=== PATIENT | female | born 1970 | race Caucasian/White ===

== ENCOUNTER 2019-02-21 13:25 | Inpatient (IN) ==
[2019-02-21] MEDS ORDERED: Ondansetron 4 MG/2 ML VIAL IVP ONE (14:12)
[2019-02-21] MEDS ORDERED: 0.9 % Sodium Chloride 1,000 ML IVC ONE ×2 (14:12→15:28)
[2019-02-21 14:46] LABS: Basophils % 0.2 %; Eosinophils % 0.1 %; Hematocrit 39.2 % (35.3-44.9); Hemoglobin 12.5 g/dL (11.5-15.4); Immature Granulocytes % 0.5 % (0-4); Lymphocytes # 1.4 K/mcL (0.6-4.6); Lymphocytes % 14.4 %; Mean Corpuscular HGB Conc 31.9 g/dL (31.6-35.5); Mean Corpuscular Hemoglobin 25.9 pg (28.0-33.3); Mean Corpuscular Volume 81.2 fL (83.0-100.0); Mean Platelet Volume 11.2 fL (9.4-12.4); Monocytes # 0.6 K/mcL (0.0-1.3); Monocytes % 6.4 %; Neutrophils # 7.4 K/mcL (1.6-8.9); Platelet Count 201 K/mcL (140-400); Red Blood Count 4.83 M/mcL (3.82-4.97); Segmented Neutrophils % 78.4 %; White Blood Count 9.4 K/mcL (4.3-11.1)
[2019-02-21 15:13] LABS: Bilirubin,Urine Negative (Negative); Blood,Urine Large (Negative); Clarity,Urine Turbid (Clear); Color,Urine Dark Yellow (Yellow); Glucose,Urine (UA) 250 mg/dL (Normal); Ketones,Urine 15 mg/dL (Negative); Leukocyte Esterase,Urine Large (Negative); Nitrite,Urine Negative (Negative); Protein,Urine 100 mg/dL (Neg-Trace); Specific Gravity,Urine 1.015 (1.010-1.025); Urobilinogen,Urine Normal (Normal)
[2019-02-21 15:15] LABS: Bacteria,Urine Many per hpf (None-Few); Hyaline Casts,Urine None Seen per lpf (None-Few); Squamous Epithelial Cell,Urine Many per lpf (None-Few); WBC,Urine TNTC per hpf (0-3)
[2019-02-21 15:26] LABS: Alanine Aminotransferase 13 Units/L (7-52); Albumin 3.1 g/dL (3.5-5.7); Albumin/Globulin Ratio 0.8 (1.1-2.2); Alkaline Phosphatase 88 Units/L (34-104); Aspartate Amino Transferase 12 Units/L (13-39); BUN/Creatinine Ratio 11 (6-26); Bilirubin,Total 0.5 mg/dL (0.3-1.0); Blood Urea Nitrogen 13 mg/dL (6-20); Calcium 8.8 mg/dL (8.6-10.3); Carbon Dioxide 25 mEq/L (23-29); Chloride 89 mEq/L (98-107); Globulin 3.9 g/dL (2.4-3.5); Glucose 363 mg/dL (70-105); Osmolality,Calculated 285 (280-300); Potassium 2.3 mEq/L (3.5-5.1); Sodium 130 mEq/L (136-145); Thyroid Stimulating Hormone 2.243 mcIU/mL (0.340-5.600); Troponin I < 0.03 ng/mL (< 0.04); eGFR For African Americans > 60 (> 60); eGFR For Non-African Americans 50 (> 60)
--- NOTE | 2019-02-21 15:32 | Emergency Department Note ---
Disposition Clinical Impression: Prolonged QT interval, Hypokalemia DKA (diabetic ketoacidoses) Qualifiers: Diabetes mellitus type: other specified (including AUDRA) Diabetes mellitus complication detail: without coma Qualified Code(s): E13.10 - Other specified diabetes mellitus with ketoacidosis without coma UTI (urinary tract infection) Qualifiers: Urinary tract infection type: acute cystitis Hematuria presence: with hematuria Qualified Code(s): N30.01 - Acute cystitis with hematuria Altered mental status Qualifiers: Altered mental status type: unspecified Qualified Code(s): R41.82 - Altered mental status, unspecified Disposition: Admitted As Inpatient Condition: Serious Time of Disposition: 15:35 General Adult HPI - General Chief complaint: ED Weakness Stated complaint: weakness Time Seen by Provider: 02/21/19 13:39 Source: patient Mode of arrival: ambulatory Limitations: no limitations Nursing Notes Reviewed: Yes Vital Signs Reviewed: Yes - History of Present Illness HPI Narrative: 48-year-old female presents emergency Department with concerns of weakness. Patient states symptoms have been worsening over the past few weeks. Patient states she has had difficulty tolerating by mouth intake over the past few days. She has been unable to tolerate her diabetic medications. She is unsure if she had a fever however she reports Reiger's at home. Patient denies recent trauma, chest pain, shortness of breath, hematochezia, melena. Patient states her sugar was 350 earlier today and has not taken it in over a week prior to that. Pain Scale: 7 - Related Data Home Medications Medication Instructions Recorded Confirmed Aspirin Enteric Coated [Aspirin EC] 325 mg PO DAILY 01/09/18 02/21/19 Cholecalciferol (Vitamin D3) 10,000 unit PO MOTH 01/09/18 02/21/19 [Vitamin D3] Glimepiride [Amaryl] 4 mg PO DAILY 01/09/18 02/21/19 LORazepam [Ativan] 1 mg PO QAM 01/09/18 02/21/19 LORazepam [Ativan] 2 mg PO HS 01/09/18 02/21/19 Metformin HCl 1,000 mg PO BID 01/09/18 02/21/19 Omeprazole [PriLOSEC] 20 mg PO DAILY 01/09/18 02/21/19 Pioglitazone HCl 30 mg PO DAILY 01/09/18 02/21/19 Potassium Chloride [Klor-Con 10] 10 meq PO DAILY 01/09/18 02/21/19 Simvastatin [Zocor] 40 mg PO HS 01/09/18 02/21/19 Topiramate [Topamax] 100 mg PO HS 01/09/18 02/21/19 Topiramate [Topamax] 200 mg PO QAM 01/09/18 02/21/19 ARIPiprazole [Abilify] 5 mg PO DAILY 02/21/19 02/21/19 FLUoxetine HCl [Fluoxetine HCl] 40 mg PO DAILY 02/21/19 02/21/19 Liraglutide [Victoza 3-Curtis] 1.8 mg SQ DAILY 02/21/19 02/21/19 Allergies Allergy/AdvReac Type Severity Reaction Status Date / Time divalproex sodium AdvReac Headache Verified 02/21/19 13:28 [From Depakote] glyburide [From Micronase] AdvReac Vomiting Verified 02/21/19 13:28 All systems ED: reviewed and negative except as stated. Review of Systems: As Per [facility] Past Medical History - Past Medical History Attestation: Yes The following information was validated with the patient. Source: patient Medical history: Reports: diabetes, GERD, hyperlipidemia, hypertension Surgical history: Reports: cholecystectomy Psychiatric history: Reports: bipolar - Social History Smoking Status: Former smoker Smokeless Tobacco Status: No Alcohol use: Reports: none Drug use: Reports: none Physical Exam General: Alert and in no acute distress. Patient is slow to respond to questions but answers them appropriately. Skin: Warm, dry, intact Head: Normocephalic and atraumatic Neck: Supple, trachea midline and no tenderness Cardiovascular: Tachycardia, no murmur, normal perfusion Respiratory: CTAB, no wheezing, cough, or respiratory distress Musculoskeletal: Normal strength, no tenderness, swelling or deformity GI: Soft, generalized tenderness to examination without evidence of rigidity, guarding, rebound. nondistended. Bowel sounds present Neuro: A&O to person, place, time and situation. No focal deficits noted on exam Psychiatric: cooperative and appropriate mood and affect. - General General appearance: alert, lethargic Course Vital Signs Temperature 97.3 F L 02/21/19 13:28 Pulse Rate 127 02/21/19 13:28 Respiratory Rate 15 02/21/19 13:28 Blood Pressure 109/78 02/21/19 13:28 O2 Sat by Pulse Oximetry 96 02/21/19 13:28 Temperature 100.4 F H 02/22/19 00:13 Pulse Rate 124 02/22/19 00:00 Respiratory Rate 17 02/22/19 00:00 Blood Pressure 127/63 02/22/19 00:00 O2 Sat by Pulse Oximetry 97 02/22/19 00:00 Oxygen Delivery Oxygen Delivery Room Air Medical Decision Making - MDM Narrative Medical decision making narrative: Patient is hypokalemic. She is also has DKA. Patient was given IV fluids and potassium replacement in the emergency department. She has not given insulin at this time secondary to her hypokalemia. She will be admitted to the hospitalist for further care and evaluation. She is started on antibiotics for urinary tract infection. - Medical Records Medical records reviewed: Yes I reviewed the patient's medical records. - Lab Data Lab results reviewed: Yes I reviewed the patient's lab results. Result diagrams: 02/21/19 18:49 02/21/19 18:49 Lab Results 02/21/19 02/21/19 02/21/19 Range/Units 13:35 14:20 14:20 WBC 9.4 (4.3-11.1) K/mcL RBC 4.83 (3.82-4.97) M/mcL Hgb 12.5 (11.5-15.4) g/dL Hct 39.2 (35.3-44.9) % MCV 81.2 L (83.0-100.0) fL MCH 25.9 L (28.0-33.3) pg MCHC 31.9 (31.6-35.5) g/dL RDW 18.0 H (11.5-14.5) % Plt Count 201 (140-400) K/mcL MPV 11.2 (9.4-12.4) fL Immature Gran % 0.5 (0-4) % Seg Neutrophils % 78.4 % Lymphocytes % 14.4 % Monocytes % 6.4 % Eosinophils % 0.1 % Basophils % 0.2 % Neutrophils # 7.4 (1.6-8.9) K/mcL Lymphocytes # 1.4 (0.6-4.6) K/mcL Monocytes # 0.6 (0.0-1.3) K/mcL Eosinophils # 0.0 (0.0-0.6) K/mcL Basophils # 0.0 (0.0-0.2) K/mcL Sodium 130 L (136-145) mEq/L Potassium 2.3 L* (3.5-5.1) mEq/L Chloride 89 L (98-107) mEq/L Carbon Dioxide 25 (23-29) mEq/L BUN 13 (6-20) mg/dL Creatinine 1.17 (0.60-1.20) mg/dL Est GFR ( Amer) > 60 (> 60) Est GFR (Non-Af Amer) 50 L (> 60) BUN/Creatinine Ratio 11 (6-26) Glucose 363 H (70-105) mg/dL POC Glucose 356 H (70-99) mg/dL Calculated Osmolality 285 (280-300) Lactic Acid (0.5-2.2) mmol/L Calcium 8.8 (8.6-10.3) mg/dL Total Bilirubin 0.5 (0.3-1.0) mg/dL AST 12 L (13-39) Units/L ALT 13 (7-52) Units/L Alkaline Phosphatase 88 (34-104) Units/L Troponin I < 0.03 (< 0.04) ng/mL Serum Total Protein 7.0 (6.4-8.9) g/dL Albumin 3.1 L (3.5-5.7) g/dL Globulin 3.9 H (2.4-3.5) g/dL Albumin/Globulin Ratio 0.8 L (1.1-2.2) TSH 2.243 (0.340-5.600) mcIU/mL Urine Color (Yellow) Urine Clarity (Clear) Urine pH (5.0-8.0) pH Units Ur Specific [place] (1.010-1.025) Urine Protein (Neg-Trace) mg/dL Urine Glucose (UA) (Normal) mg/dL Urine Ketones (Negative) mg/dL Urine Blood (Negative) Urine Nitrite (Negative) Urine Bilirubin (Negative) Urine Urobilinogen (Normal) mg/dL Ur Leukocyte Esterase (Negative) Urine Microscopic RBC (0-3) per hpf Urine Microscopic WBC (0-3) per hpf Ur Squamous Epith Cells (None-Few) per lpf Urine Bacteria (None-Few) per hpf Hyaline Casts (None-Few) per lpf Ur Culture Indicated? (NO) 02/21/19 02/21/19 Range/Units 14:43 15:01 WBC (4.3-11.1) K/mcL RBC (3.82-4.97) M/mcL Hgb (11.5-15.4) g/dL Hct (35.3-44.9) % MCV (83.0-100.0) fL MCH (28.0-33.3) pg MCHC (31.6-35.5) g/dL RDW (11.5-14.5) % Plt Count (140-400) K/mcL MPV (9.4-12.4) fL Immature Gran % (0-4) % Seg Neutrophils % % Lymphocytes % % Monocytes % % Eosinophils % % Basophils % % Neutrophils # (1.6-8.9) K/mcL Lymphocytes # (0.6-4.6) K/mcL Monocytes # (0.0-1.3) K/mcL Eosinophils # (0.0-0.6) K/mcL Basophils # (0.0-0.2) K/mcL Sodium (136-145) mEq/L Potassium (3.5-5.1) mEq/L Chloride (98-107) mEq/L Carbon Dioxide (23-29) mEq/L BUN (6-20) mg/dL Creatinine (0.60-1.20) mg/dL Est GFR ( Amer) (> 60) Est GFR (Non-Af Amer) (> 60) BUN/Creatinine Ratio (6-26) Glucose (70-105) mg/dL POC Glucose (70-99) mg/dL Calculated Osmolality (280-300) Lactic Acid 1.1 (0.5-2.2) mmol/L Calcium (8.6-10.3) mg/dL Total Bilirubin (0.3-1.0) mg/dL AST (13-39) Units/L ALT (7-52) Units/L Alkaline Phosphatase (34-104) Units/L Troponin I (< 0.04) ng/mL Serum Total Protein (6.4-8.9) g/dL Albumin (3.5-5.7) g/dL Globulin (2.4-3.5) g/dL Albumin/Globulin Ratio (1.1-2.2) TSH (0.340-5.600) mcIU/mL Urine Color Dark Yellow (Yellow) Urine Clarity Turbid A (Clear) Urine pH 6.0 (5.0-8.0) pH Units Ur Specific [place] 1.015 (1.010-1.025) Urine Protein 100 H (Neg-Trace) mg/dL Urine Glucose (UA) 250 H (Normal) mg/dL Urine Ketones 15 H (Negative) mg/dL Urine Blood Large H (Negative) Urine Nitrite Negative (Negative) Urine Bilirubin Negative (Negative) Urine Urobilinogen Normal (Normal) mg/dL Ur Leukocyte Esterase Large H (Negative) Urine Microscopic RBC Present (0-3) per hpf Urine Microscopic WBC TNTC H (0-3) per hpf Ur Squamous Epith Cells Many H (None-Few) per lpf Urine Bacteria Many H (None-Few) per hpf Hyaline Casts None Seen (None-Few) per lpf Ur Culture Indicated? YES A (NO) - Radiology Data Radiology results reviewed: Yes I reviewed the patient's radiology results. - EKG Data EKG #1 EKG attestation: Yes I reviewed and interpreted this EKG. EKG results narrative: Sinus tachycardia with a rate of 112 without evidence of STEMI or other dysrhythmia. QTC prolonged at 523, QRS of 95.
[2019-02-21] MEDS ORDERED: Magnesium Sulfate 1 GM in D5% in Water 100 ML IVPB ONE (15:35)
[2019-02-21] MEDS ORDERED: Calcium Gluconate 1gm/50mL 1 GM/50 ML BAG IVPB ONE ×2 (15:36→16:46)
[2019-02-21 15:40] LABS: RBC,Urine Present per hpf (0-3)
[2019-02-21] MEDS ORDERED: cefTRIAXone 1,000 MG in Water for inj. (sterile) 10 ML IVP ONE (16:02)
[2019-02-21] MEDS ORDERED: Potassium Chloride Elixir 20 MEQ/15 ML UDC PO ONE (16:15)
[2019-02-21 16:32] LABS: ABG Base Excess 1 mEq/L (-2 to 3); ABG HCO3 24 mEq/L (21-27); ABG Oxygen Saturation 98 % (95-98); ABG PCO2 32 mmHg (35-45); ABG PH 7.49 pH Units (7.32-7.45); ABG PO2 91 mmHg (85-104); ABG TCO2 25 mEq/L (20-26)
--- NOTE | 2019-02-21 17:11 | Internal Med History&Physical ---
<Graciela Roy E - Last Filed: 02/21/19 18:52> Date of Encounter: 02/21/19 Time of Encounter: 16:40 Internal Medicine - H&P: HPI Chief complaint: weakness, n/v Admitted From: Home Plans for Post Hospital Care: Home History of present illness: Ms. Blue is a 48 year old female with past medical history of diabetes type 2 non- insulin dependent, hyperlipidemia, anxiety, depression, mood disorder. Presented to the ER with weakness as worsened over the past few weeks. She states that she has not been able to keep food or water down for 2 weeks, and will stay down for a short period of time and then she will vomit without warning. She has not been able to take her diabetes medications for the past few days. She denies any fevers or chills but did state that she had shaking earlier today. She does state she has had diarrhea for the past few days. She also has burning and pain with urination for the last 2 weeks. states that she is much slower than her typical self, she is typically "right on it ". Her glucose this morning was 350. She denies any chest pain, shortness of br eath, abdominal pain. Vitals on admission 97.3 temperature, heart rate 108, respiratory rate 13, blood pressure 95/71, 97% on room air. Patient's labs on admission show white blood cell count of 9.4, hemoglobin 12.5, hematocrit 39.2, platelet count of 201, sodium 1:30 which is corrected at 134, potassium 2.3, chloride 89, creatinine 1.17, GFR 50, glucose of 363, AST of 12, albumin 3.1. Showing an anion gap of 16. ABG showed pH of 7.49, PCO2 of 32, PO2 of 91 HCO3 of 24 total CO2 of 25 O2 saturation of 98% on room air EKG shows sinus tach rate of 112 no signs of ischemia prolonged QTC at 523, QRS at 95. UA shows turbid yellow urine with a pH of 6.0, specific gravity 1.015, protein 100, glucose of 250, ketones of 15, large blood, large leukocyte esterase, microscopic red blood cells and white blood cells, bacteria Chest x-ray showed no acute cardiopulmonary disease CT head showed no acute intracranial abnormalities Family historymother diabetes and heart disease Social historydenies alcohol, previous smoker last smoking history one month ago, denies illicit drug use including marijuana Patient was treated in the ED with mag sulfate 2 g, 40 mg of oral potassium chloride, 1 L fluids, 1 g of ceftriaxone, 1 g of calcium gluconate Past Med Surg Social Fam HX - Past Medical History Medical history: diabetes, GERD, hyperlipidemia, hypertension Additional medical history: Anxiety, Bipolar Disorder, neuropathy-arms, renal lithiasis, fibrocystic breast disease. Depression, Obesity. Endometriosis. Seasonal Allergies Psychiatric history: bipolar - Past Surgical History Surgical History: cholecystectomy Additional surgical history: kidney stone,tubal ligation,hydrothermal ablasion - Social History Smoking Status: Former smoker Smokeless Tobacco Status: No Alcohol use: none Drug use: none Internal Medicine - H&P: Meds Aspirin Enteric Coated [Aspirin EC] 325 mg PO DAILY 01/09/18 [History] Cholecalciferol (Vitamin D3) [Vitamin D3] 10,000 unit PO MOTH 01/09/18 [History] Glimepiride [Amaryl] 4 mg PO DAILY 01/09/18 [History] LORazepam [Ativan] 1 mg PO QAM 01/09/18 [History] LORazepam [Ativan] 2 mg PO HS 01/09/18 [History] Metformin HCl 1,000 mg PO BID 01/09/18 [History] Omeprazole [PriLOSEC] 20 mg PO DAILY 01/09/18 [History] Pioglitazone HCl 30 mg PO DAILY 01/09/18 [History] Potassium Chloride [Klor-Con 10] 10 meq PO DAILY 01/09/18 [History] Simvastatin [Zocor] 40 mg PO HS 01/09/18 [History] Topiramate [Topamax] 100 mg PO HS 01/09/18 [History] Topiramate [Topamax] 200 mg PO QAM 01/09/18 [History] ARIPiprazole [Abilify] 5 mg PO DAILY 02/21/19 [History] FLUoxetine HCl [Fluoxetine HCl] 40 mg PO DAILY 02/21/19 [History] Liraglutide [Victoza 3-Curtis] 1.8 mg SQ DAILY 02/21/19 [History] Allergy/AdvReac Type Severity Reaction Status Date / Time divalproex sodium AdvReac Headache Verified 02/21/19 13:28 [From Depakote] glyburide [From Micronase] AdvReac Vomiting Verified 02/21/19 13:28 All Systems PM: A 10-system review of systems was performed and is negative for pertinent findings except as documented above in the HPI. - Constitutional Constitutional: fatigue, no chills, no fever(s) - EENT Eyes: no blurry vision Nose, mouth and throat: no sinus pain, no sinus pressure - Cardiovascular Cardiovascular ROS IM: no chest pain, no dyspnea, no edema, no palpitations - Respiratory Respiratory: no cough, no dyspnea, no excessive phlegm production - Gastrointestinal Gastrointestinal: diarrhea, nausea, vomiting, no abdominal pain, no consti pation, no hematemesis - Genitourinary Genitourinary: urinary frequency, urinary hesitancy, urinary urgency - Musculoskeletal Musculoskeletal ROS IM: no back pain, no muscle cramps - Integumentary Integumentary IM: no new lesions, no rash, no skin ulcer - Neurological Neurological ROS: confusion, weakness - Constitutional Vitals: Temp Pulse Resp BP Pulse Ox 97.3 F L 108 13 95/71 97 02/21/19 13:54 02/21/19 15:06 02/21/19 15:06 02/21/19 15:06 02/21/19 15:06 General appearance: Present: A&O X 2, no acute distress, answers questions appropriately (Although slowly) Exam: As above - Head Head exam: Present: atraumatic, normal inspection - Eye Eye exam: Present: PERRL, sclera anicteric - ENT ENT exam: Present: mucous membranes dry - Neck Neck exam general surgery: Present: supple, trachea midline. Absent: lymphadenopathy, tenderness - Respiratory Respiratory exam: Present: CTAB. Absent: rales, rhonchi, stridor, wheezes - Cardiovascular Cardiovascular exam: Present: RRR, tachycardia. Absent: diastolic murmur, systolic murmur - GI/Abdominal GI/Abdominal exam: Present: normal bowel sounds, soft. Absent: tenderness - Extremities Exam Extremities exam: Present: warm. Absent: calf tenderness, pedal edema - Neurological Exam Neurological exam: Present: altered (Slow to answer questions, after repeat able to answer), CN II-XII intact. Absent: facial droop - Skin Skin exam: Present: dry, intact, warm Internal Med - H&P Results - Labs CBC & Chem 7: 02/21/19 14:20 02/21/19 14:20 Labs: Short CBC 02/21/19 Range/Units 14:20 WBC 9.4 (4.3-11.1) K/mcL Hgb 12.5 (11.5-15.4) g/dL Hct 39.2 (35.3-44.9) % Plt Count 201 (140-400) K/mcL Neutrophils # 7.4 (1.6-8.9) K/mcL BMP 02/21/19 14:20 Sodium 130 L Potassium 2.3 L* Chloride 89 L Carbon Dioxide 25 BUN 13 Creatinine 1.17 Glucose 363 H Calcium 8.8 Cardiac Enzymes 02/21/19 Range/Units 14:20 Troponin I < 0.03 (< 0.04) ng/mL Liver Function 02/21/19 Range/Units 14:20 Total Bilirubin 0.5 (0.3-1.0) mg/dL AST 12 L (13-39) Units/L ALT 13 (7-52) Units/L Alkaline Phosphatase 88 (34-104) Units/L Albumin 3.1 L (3.5-5.7) g/dL Urine 02/21/19 Range/Units 14:43 Urine Color Dark Yellow (Yellow) Urine Clarity Turbid A (Clear) Urine pH 6.0 (5.0-8.0) pH Units Ur Specific [place] 1.015 (1.010-1.025) Urine Protein 100 H (Neg-Trace) mg/dL Urine Glucose (UA) 250 H (Normal) mg/dL - ABG Interpretation ABG results: 02/21/19 16:27 ABG pH 7.49 H ABG pCO2 32 L ABG pO2 91 ABG HCO3 24 ABG Total CO2 25 ABG O2 Saturation 98 ABG Base Excess 1 - Impressions ITS Impressions Chest X-Ray 02/21/19 14:12 IMPRESSION: No acute cardiopulmonary disease. D/ / 02/21/2019 15:40:50 Kris Padilla MD / [email or web address] Interpreting Provider: Kris Padilla MD Head CT 02/21/19 14:13 IMPRESSION: No acute intracranial abnormality. D/ / Kris Padilla MD / Kris Padilla MD Interpreting Provider: Kris Padilla MD - Assessment and Plan (1) Hypokalemia Current Visit: Yes Status: Acute Assessment and plan: Likely secondary to poor oral intake, diarrhea, vomiting Patient has received 40 mEq by mouth and is currently receiving 40 units IV We will continue to monitor potassium and replace as necessary EKG changes showing QTc prolongation of 523 and tachycardia We will recheck EKG (2) Sepsis Current Visit: Yes Status: Acute Assessment and plan: Patient meets sepsis criteria with tachycardia 108, blood pressure 95/71, possible source of infection UTI Patient received 2 L of fluid in the ED We will continue to treat UTI with IV antibiotics We will continue to monitor patient's vitals Qualifiers: Sepsis type: sepsis due to unspecified organism Sepsis acute organ dysfunction status: without acute organ dysfunction Qualified Code(s): A41.9 - Sepsis, unspecified organism (3) UTI (urinary tract infection) Current Visit: Yes Status: Acute Assessment and plan: Patient had turbid yellow urine with a pH of 6.0, specific gravity 1.015, protein 100, glucose of 250, ketones of 15, large blood, large leukocyte esterase, microscopic RBC and WBC, bacteria Patient does state that she has had pain with urination as well as burning with urination for the last 2+ weeks Patient has also been nauseous and has had vomiting for the last 2 weeks as well as diarrhea Urine culture was done in ED Patient was given 1 dose of Rocephin in the ED We will continue IV antibiotics at this time Qualifiers: Urinary tract infection type: acute cystitis Hematuria presence: with hematuria Qualified Code(s): N30.01 - Acute cystitis with hematuria (4) Prolonged QT interval Current Visit: Yes Status: Acute Assessment and plan: Patient's QTc noted to be 523 on EKG in the ED Likely secondary to hypokalemia Electrolytes are being replaced currently and we will repeat EKG Patient has received 2 g of mag sulfate Patient is also received 1 g of calcium gluconate for cardiac membrane protection (5) Altered mental status Current Visit: Yes Status: Acute Assessment and plan: Patient's states patient is very slow compared to normal Patient is able to answer questions appropriately but takes quite some time to answer This is likely secondary to patient's clinical status Treatment as per above Patient is a note 3 at this time Qualifiers: Altered mental status type: unspecified Qualified Code(s): R41.82 - Altered mental status, unspecified (6) Hyponatremia Current Visit: Yes Status: Acute Assessment and plan: Likely secondary to poor oral intake, vomiting, diarrhea Patient has received 40 mg orally of potassium chloride and is currently receiving 40 mg of potassium chloride IV We will continue to monitor and replace as necessary (7) Diabetes mellitus Current Visit: Yes Status: Acute Assessment and plan: Patient is a known history of diabetes type 2 on Victoza and metformin We will switch patient to sliding scale insulin once her potassium has reached above 3.5 Qualifiers: Diabetes mellitus type: type 2 Diabetes mellitus exterminator termite insulin use: with exterminator termite use Diabetes mellitus complication status: with hyperglycemia Qualified Code(s): E11.65 - Type 2 diabetes mellitus with hyperglycemia; Z79.4 - terminal press operator (current) use of insulin (8) Hyperlipidemia Current Visit: No Status: Chronic Assessment and plan: Continue patient's home statin Qualifiers: Hyperlipidemia type: unspecified Qualified Code(s): E78.5 - Hyperlipidemia, unspecified (9) Depression with anxiety Current Visit: No Status: Chronic Assessment and plan: Patient has a history of depression and anxiety as well as mood disorder We will continue home medications (10) Mood disorder Current Visit: No Status: Chronic Assessment and plan: Continue home medications (11) Colitis Current Visit: Yes Status: Suspected Assessment and plan: Patient states that she has had diarrhea which has been partially formed 1-2 bowel movements per day At this time we are concerned for colitis due to patient's hypokalemia as well as diarrhea, nausea, vomiting We will continue to monitor patient in his loose bowels continue we will consider stool culture and antibiotic coverage for this - Time Spent With Patient Total time spent is greater than 50% in coordination of care (as documented) at patient's floor/unit and/or counseling patient: <Danitza Nunes - Last Filed: 02/22/19 07:26> Date of Encounter: 02/22/19 Internal Medicine - H&P: HPI History of present illness: Ms. Blue is a 48 year old female All Systems PM: A 10-system review of systems was performed and is negative for pertinent findings except as documented above in the HPI. - Constitutional Vitals: Temp Pulse Resp BP Pulse Ox 99.0 F 87 16 83/55 95 02/22/19 04:10 02/22/19 06:00 02/22/19 06:00 02/22/19 06:00 02/22/19 06:00 Internal Med - H&P Results - Labs CBC & Chem 7: 02/22/19 03:36 02/22/19 05:34 Labs: Short CBC 02/21/19 02/21/19 02/22/19 Range/Units 14:20 18:49 03:36 WBC 9.4 7.2 11.5 H D (4.3-11.1) K/mcL Hgb 12.5 10.7 L D 9.9 L (11.5-15.4) g/dL Hct 39.2 33.4 L 31.6 L (35.3-44.9) % Plt Count 201 168 141 (140-400) K/mcL Neutrophils # 7.4 4.7 10.3 H (1.6-8.9) K/mcL BMP 02/21/19 02/21/19 02/22/19 14:20 18:49 00:03 Sodium 130 L 133 L 135 L Potassium 2.3 L* 2.3 L* 3.2 L D Chloride 89 L 99 103 Carbon Dioxide 25 24 17 L BUN 13 12 11 Creatinine 1.17 0.93 1.04 Glucose 363 H 262 H 223 H Calcium 8.8 7.9 L 7.7 L 02/22/19 02/22/19 02/22/19 00:41 03:36 05:34 Sodium 137 136 138 Potassium 3.6 2.4 L* D 2.5 L* Chloride 106 106 107 Carbon Dioxide 17 L 17 L 21 L BUN 11 11 11 Creatinine 1.43 H 0.97 1.01 Glucose 251 H 288 H 324 H Calcium 7.7 L 7.4 L 7.5 L Cardiac Enzymes 02/21/19 02/22/19 Range/Units 14:20 05:34 Troponin I < 0.03 < 0.03 (< 0.04) ng/mL Liver Function 02/21/19 02/22/19 02/22/19 Range/Units 14:20 03:36 05:34 Total Bilirubin 0.5 0.4 (0.3-1.0) mg/dL AST 12 L 12 L (13-39) Units/L ALT 13 8 (7-52) Units/L Alkaline Phosphatase 88 66 (34-104) Units/L Albumin 3.1 L 2.4 L 2.2 L (3.5-5.7) g/dL Urine 02/21/19 Range/Units 14:43 Urine Color Dark Yellow (Yellow) Urine Clarity Turbid A (Clear) Urine pH 6.0 (5.0-8.0) pH Units Ur Specific [place] 1.015 (1.010-1.025) Urine Protein 100 H (Neg-Trace) mg/dL Urine Glucose (UA) 250 H (Normal) mg/dL - ABG Interpretation ABG results: 02/21/19 16:27 ABG pH 7.49 H ABG pCO2 32 L ABG pO2 91 ABG HCO3 24 ABG Total CO2 25 ABG O2 Saturation 98 ABG Base Excess 1 - Impressions ITS Impressions Chest X-Ray 02/21/19 14:12 IMPRESSION: No acute cardiopulmonary disease. D/ / 02/21/2019 15:40:50 Kris aPdilla MD / [facility] Interpreting Provider: Kris aPdilla MD Head CT 02/21/19 14:13 IMPRESSION: No acute intracranial abnormality. D/ / Kris Padilla MD / Kris Padilla MD Interpreting Provider: Kris Padilla MD - Time Spent With Patient Total time spent is greater than 50% in coordination of care (as documented) at patient's floor/unit and/or counseling patient: - Attending Attestation I saw evaluated and examined this patient and reviewed objective data including labs and my medical decision-making was reviewed with the Resident Physician/Medical Student. I agree with the documented findings, disposition and treatment plan as described except to any changes set forth below. We independently had [id number] contact with the patient.
[2019-02-21] MEDS ORDERED: Naloxone 0.4 MG/ML INJ IVP PRN (17:19)
[2019-02-21] MEDS ORDERED: Calcium Gluconate 1gm/50mL 1 GM/50 ML BAG IVPB PRN (17:59)
[2019-02-21] MEDS ORDERED: 0.9 % Sodium Chloride 1,000 ML IVC SCH (18:15)
[2019-02-21] MEDS ORDERED: POTASSIUM CHLORIDE IVPB ONE (18:23)
[2019-02-21] MEDS ORDERED: LIDOCAINE 1% IVPB ONE (18:23)
[2019-02-21] MEDS ORDERED: SODIUM CHLORIDE 0.9% IVPB ONE (18:23)
[2019-02-21] MEDS: 0.9 % Sodium Chloride 1,000 ML IVC SCH ×3 (18:50→21:27)
[2019-02-21 19:07] LABS: Basophils % 0.1 %; Eosinophils % 0.3 %; Hematocrit 33.4 % (35.3-44.9); Immature Granulocytes % 0.6 % (0-4); Lymphocytes % 27.6 %; Mean Corpuscular Hemoglobin 26.7 pg (28.0-33.3); Mean Corpuscular Volume 83.3 fL (83.0-100.0); Mean Platelet Volume 10.8 fL (9.4-12.4); Monocytes # 0.5 K/mcL (0.0-1.3); Monocytes % 6.5 %; Neutrophils # 4.7 K/mcL (1.6-8.9); Platelet Count 168 K/mcL (140-400); Red Blood Count 4.01 M/mcL (3.82-4.97); Segmented Neutrophils % 64.9 %; White Blood Count 7.2 K/mcL (4.3-11.1)
[2019-02-21 19:08] LABS: Hemoglobin 10.7 g/dL (11.5-15.4)
[2019-02-21 19:26] LABS: VBG Ionized Calcium 1.07 mmol/L (1.15-1.35)
[2019-02-21] MEDS: MetroNIDAZOLE 500 MG/100 ML 500 MG/100 ML BAG IVPB SCH (19:29)
[2019-02-21 19:34] LABS: BUN/Creatinine Ratio 13 (6-26); Blood Urea Nitrogen 12 mg/dL (6-20); Calcium 7.9 mg/dL (8.6-10.3); Carbon Dioxide 24 mEq/L (23-29); Chloride 99 mEq/L (98-107); Glucose 262 mg/dL (70-105); Magnesium 2.1 mg/dL (1.6-2.6); Osmolality,Calculated 285 (280-300); Phosphorous 1.7 mg/dL (2.7-4.5); Potassium 2.3 mEq/L (3.5-5.1); Sodium 133 mEq/L (136-145); eGFR For African Americans > 60 (> 60); eGFR For Non-African Americans > 60 (> 60)
[2019-02-21] MEDS ORDERED: Ondansetron 4 MG/2 ML VIAL ONE (23:31)
[2019-02-22] MEDS: Ondansetron 4 MG/2 ML VIAL IVP PRN (00:05)
[2019-02-22] MEDS ORDERED: *HR* Promethazine 25 MG/ML VIAL IVP PRN (00:13)
[2019-02-22] MEDS ORDERED: 0.9 % Sodium Chloride 250 ML IVC ONE ×3 (00:39→06:22)
[2019-02-22 00:55] LABS: BUN/Creatinine Ratio 11 (6-26); Blood Urea Nitrogen 11 mg/dL (6-20); Calcium 7.7 mg/dL (8.6-10.3); Carbon Dioxide 17 mEq/L (23-29); Chloride 103 mEq/L (98-107); Glucose 223 mg/dL (70-105); Osmolality,Calculated 286 (280-300); Potassium 3.2 mEq/L (3.5-5.1); Sodium 135 mEq/L (136-145); eGFR For African Americans > 60 (> 60); eGFR For Non-African Americans 57 (> 60)
[2019-02-22] MEDS: MetroNIDAZOLE 500 MG/100 ML 500 MG/100 ML BAG IVPB SCH ×4 (00:56→23:38)
[2019-02-22 01:25] LABS: Calcium 7.7 mg/dL (8.6-10.3); Potassium 3.6 mEq/L (3.5-5.1)
[2019-02-22] MEDS: 0.9 % Sodium Chloride 1,000 ML IVC SCH (02:05)
[2019-02-22 03:53] LABS: Basophils % 0.1 %; Hematocrit 31.6 % (35.3-44.9); Hemoglobin 9.9 g/dL (11.5-15.4); Immature Granulocytes % 1.3 % (0-4); Lymphocytes # 0.6 K/mcL (0.6-4.6); Lymphocytes % 5.6 %; Mean Corpuscular HGB Conc 31.3 g/dL (31.6-35.5); Mean Corpuscular Hemoglobin 26.4 pg (28.0-33.3); Mean Corpuscular Volume 84.3 fL (83.0-100.0); Mean Platelet Volume 11.1 fL (9.4-12.4); Monocytes # 0.4 K/mcL (0.0-1.3); Monocytes % 3.7 %; Neutrophils # 10.3 K/mcL (1.6-8.9); Platelet Count 141 K/mcL (140-400); Red Blood Count 3.75 M/mcL (3.82-4.97); Segmented Neutrophils % 89.3 %; White Blood Count 11.5 K/mcL (4.3-11.1)
[2019-02-22 04:17] LABS: Alanine Aminotransferase 8 Units/L (7-52); Albumin 2.4 g/dL (3.5-5.7); Albumin/Globulin Ratio 0.9 (1.1-2.2); Alkaline Phosphatase 66 Units/L (34-104); Aspartate Amino Transferase 12 Units/L (13-39); BUN/Creatinine Ratio 11 (6-26); Bilirubin,Total 0.4 mg/dL (0.3-1.0); Blood Urea Nitrogen 11 mg/dL (6-20); Calcium 7.4 mg/dL (8.6-10.3); Carbon Dioxide 17 mEq/L (23-29); Chloride 106 mEq/L (98-107); Globulin 2.7 g/dL (2.4-3.5); Glucose 288 mg/dL (70-105); Osmolality,Calculated 292 (280-300); Potassium 2.4 mEq/L (3.5-5.1); Sodium 136 mEq/L (136-145); Total Protein 5.1 g/dL (6.4-8.9); eGFR For African Americans > 60 (> 60); eGFR For Non-African Americans > 60 (> 60)
[2019-02-22] MEDS ORDERED: 0.9 % Sodium Chloride 500 ML IVC ONE ×2 (05:18→06:51)
[2019-02-22 05:57] LABS: VBG Ionized Calcium 1.15 mmol/L (1.15-1.35)
[2019-02-22 06:14] LABS: BUN/Creatinine Ratio 11 (6-26); Blood Urea Nitrogen 11 mg/dL (6-20); Calcium 7.5 mg/dL (8.6-10.3); Carbon Dioxide 21 mEq/L (23-29); Chloride 107 mEq/L (98-107); Glucose 324 mg/dL (70-105); Osmolality,Calculated 298 (280-300); Potassium 2.5 mEq/L (3.5-5.1); Sodium 138 mEq/L (136-145); eGFR For African Americans > 60 (> 60); eGFR For Non-African Americans 59 (> 60)
[2019-02-22] MEDS ORDERED: 0.9 % Sodium Chloride 500 ML ONE (06:15)
[2019-02-22 06:23] LABS: Troponin I < 0.03 ng/mL (< 0.04)
[2019-02-22] MEDS: Albumin 25% 25gram/100mL 25 GM/100 ML IV.SOLN IVC SCH ×2 (06:26→06:35)
[2019-02-22 06:38] LABS: Magnesium 1.9 mg/dL (1.6-2.6); Phosphorous < 1.0 mg/dL (2.7-4.5)
[2019-02-22] MEDS ORDERED: Potassium Phosphate 44 MEQ in 0.9 % Sodium Chloride 250 ML IVPB ONE (06:39)
[2019-02-22 06:54] LABS: Albumin 2.2 g/dL (3.5-5.7)
[2019-02-22 07:23] LABS: Adenovirus Not Detected (Not Detect); Bordetella Pertussis Not Detected (Not Detect); Chlamydophila pneumoniae Not Detected (Not Detect); Coronavirus 229E Not Detected (Not Detect); Coronavirus HKU1 Not Detected (Not Detect); Coronavirus NL63 Not Detected (Not Detect); Coronavirus OC43 Not Detected (Not Detect); Human Metapneumovirus Not Detected (Not Detect); Human Rhinovirus/Enterovirus Not Detected (Not Detect); Influenza A Subtype 2009 H1 Not Detected (Not Detect); Influenza A Untypeable Not Detected (Not Detect); Influenza B Not Detected (Not Detect); Mycoplasma pneumoniae Not Detected (Not Detect); Parainfluenza Virus 1 Not Detected (Not Detect); Parainfluenza Virus 2 Not Detected (Not Detect); Parainfluenza Virus 3 Not Detected (Not Detect); Parainfluenza Virus 4 Not Detected (Not Detect); Respiratory Syncytial Virus Not Detected (Not Detect)
[2019-02-22 08:17] LABS: Estimated Average Glucose 226 mg/dl
[2019-02-22] MEDS ORDERED: Lidocaine -MPF 1% 5 ML AMPUL INFILT ONE (08:49)
[2019-02-22] MEDS: cefTRIAXone 2,000 MG in Water for inj. (sterile) 20 ML IVP SCH (08:59)
[2019-02-22] MEDS ORDERED: cefTRIAXone 1,000 MG in Water for inj. (sterile) 10 ML IVP SCH (09:00)
[2019-02-22 09:20] LABS: BUN/Creatinine Ratio 12 (6-26); Blood Urea Nitrogen 11 mg/dL (6-20); Carbon Dioxide 20 mEq/L (23-29); Chloride 109 mEq/L (98-107); Glucose 307 mg/dL (70-105); Osmolality,Calculated 295 (280-300); Potassium 2.6 mEq/L (3.5-5.1); Sodium 137 mEq/L (136-145); eGFR For African Americans > 60 (> 60); eGFR For Non-African Americans > 60 (> 60)
[2019-02-22] MEDS ORDERED: 0.9 % Sodium Chloride w KCl 40 MEQ/1,000 ML MLS IVC SCH (09:30)
[2019-02-22 09:47] LABS: C-Reactive Protein 72 mg/L (Less than 10)
[2019-02-22] MEDS ORDERED: Hydrocortisone Sodium Succ 100 MG/2 ML VIAL IVP SCH (10:13)
[2019-02-22] MEDS: Norepinephrine 4 MG in 0.9 % Sodium Chloride 250 ML IVC SCH (10:35)
[2019-02-22] MEDS: Hydrocortisone Sodium Succ 100 MG/2 ML VIAL IVP SCH ×3 (10:39→23:38)
[2019-02-22 11:52] LABS: BUN/Creatinine Ratio 12 (6-26); Blood Urea Nitrogen 11 mg/dL (6-20); Calcium 6.9 mg/dL (8.6-10.3); Carbon Dioxide 19 mEq/L (23-29); Chloride 108 mEq/L (98-107); Glucose 294 mg/dL (70-105); Magnesium 1.8 mg/dL (1.6-2.6); Osmolality,Calculated 292 (280-300); Phosphorous 2.5 mg/dL (2.7-4.5); Potassium 2.9 mEq/L (3.5-5.1); Sodium 136 mEq/L (136-145); eGFR For African Americans > 60 (> 60); eGFR For Non-African Americans > 60 (> 60)
--- NOTE | 2019-02-22 13:03 | Internal Med Progress Note ---
Hospitalist Progress Note - Encounter Date of Encounter: 02/22/19 Time of Encounter: 07:15 - Subjective Interval History: Patient admitted overnight for concerns of UTI, sepsis, electrolyte imbalance, and diabetes. She was fluid resuscitated and BP continues to drop off IVF boluses. I ordered PICC line and then pressor support. She is responding nicel y to Levophed. Given the GI complaints of 2 weeks and sepsis picture, I added hydrocortisone after her cortisol level was less than 20 on STAT labs this morning. We are also ordering stool for C. Diff, but clinically I am less suspicious. She is A&Ox3 but she appears to be slow to respond. I'm not sure if this is her baseline. We are awaiting family members to confirm. She denies any abdominal pain, flank pain, or suprapubic pain. - Exam Vitals: Temp Pulse Resp BP Pulse Ox 97.6 F 80 20 86/60 98 02/22/19 11:30 02/22/19 10:00 02/22/19 10:00 02/22/19 10:48 02/22/19 10:00 Exam: General: A&Ox3; slow to respond but appropriate HEENT: no icterus, EOMI, neck supply, dry mucosa CHEST: CTA B, no WRR, RRR, NO appreciable MTR. Abdomen: soft, NT, ND, No HSMG; + BS, no rebound, no guarding Ext: no calf pain, delayed cap refill of 4 seconds, pulses 1 + Neuro: no focal deficits, CN 2-12 intact Skin: warm and dry centrally; cool extremities; no appreciable rash Psych: flat affect; slow to respond (? baseline) - Assessment and Plan (1) Sepsis Current Visit: Yes Status: Acute Assessment and Plan: 1. Likely urine source. 2. Continue antibiotics. 3. Fluid resuscitation has been done; pressors started; hydrocortisone initiated. 4. Lactate trend has been normal. 5. Monitor hemodynamics and I/O. 6. Stool for C. Diff ordered. 7. Antibiotics include Vancomycin, Rocephin, and Flagyl -- de-escalate as clinical course and cultures dictate. (2) Hypokalemia Current Visit: Yes Status: Acute Assessment and Plan: 1. Monitor closely and correct, preferably by enteral route. Will correct with IV if unable to tolerate PO. (3) UTI (urinary tract infection) Current Visit: Yes Status: Acute Assessment and Plan: 1. Follow cultures and continue antibiotics. 2. Supportive measures as above. (4) DVT prophylaxis Current Visit: Yes Status: Acute Assessment and Plan: 1. Heparin SQ. (5) Hypophosphatemia Current Visit: Yes Status: Acute Assessment and Plan: 1. Replacing with potassium phosphate. 2. Monitor closely. (6) Diabetes mellitus Current Visit: Yes Status: Chronic Assessment and Plan: 1. Will use SSI and monitor glucose. If necessary, will add insulin drip. 2. Correct hypokalemia before giving insulin. 3. Patient does not have DKA. - Time Spent with Patient Total time spent is greater than 50% in coordination of care (as documented) at patient's floor/unit and/or counseling patient: Greater than 35 minutes Internal Medicine: Result - Labs CBC & Chem 7: 02/22/19 03:36 02/22/19 11:20 Labs: Short CBC 02/21/19 02/21/19 02/22/19 Range/Units 14:20 18:49 03:36 WBC 9.4 7.2 11.5 H D (4.3-11.1) K/mcL Hgb 12.5 10.7 L D 9.9 L (11.5-15.4) g/dL Hct 39.2 33.4 L 31.6 L (35.3-44.9) % Plt Count 201 168 141 (140-400) K/mcL Neutrophils # 7.4 4.7 10.3 H (1.6-8.9) K/mcL BMP 02/21/19 02/21/19 02/22/19 14:20 18:49 00:03 Sodium 130 L 133 L 135 L Potassium 2.3 L* 2.3 L* 3.2 L D Chloride 89 L 99 103 Carbon Dioxide 25 24 17 L BUN 13 12 11 Creatinine 1.17 0.93 1.04 Glucose 363 H 262 H 223 H Calcium 8.8 7.9 L 7.7 L 02/22/19 02/22/19 02/22/19 00:41 03:36 05:34 Sodium 137 136 138 Potassium 3.6 2.4 L* D 2.5 L* Chloride 106 106 107 Carbon Dioxide 17 L 17 L 21 L BUN 11 11 11 Creatinine 1.43 H 0.97 1.01 Glucose 251 H 288 H 324 H Calcium 7.7 L 7.4 L 7.5 L 02/22/19 02/22/19 08:07 11:20 Sodium 137 136 Potassium 2.6 L 2.9 L Chloride 109 H 108 H Carbon Dioxide 20 L 19 L BUN 11 11 Creatinine 0.89 0.89 Glucose 307 H 294 H Calcium 7.0 L 6.9 L Cardiac Enzymes 02/21/19 02/22/19 Range/Units 14:20 05:34 Troponin I < 0.03 < 0.03 (< 0.04) ng/mL Liver Function 02/21/19 02/22/19 02/22/19 Range/Units 14:20 03:36 05:34 Total Bilirubin 0.5 0.4 (0.3-1.0) mg/dL AST 12 L 12 L (13-39) Units/L ALT 13 8 (7-52) Units/L Alkaline Phosphatase 88 66 (34-104) Units/L Albumin 3.1 L 2.4 L 2.2 L (3.5-5.7) g/dL Urine 02/21/19 Range/Units 14:43 Urine Color Dark Yellow (Yellow) Urine Clarity Turbid A (Clear) Urine pH 6.0 (5.0-8.0) pH Units Ur Specific [place] 1.015 (1.010-1.025) Urine Protein 100 H (Neg-Trace) mg/dL Urine Glucose (UA) 250 H (Normal) mg/dL - ABG Interpretation ABG results: ABG ABG pH 7.49 pH Units (7.32-7.45) H 02/21/19 16:27 ABG pCO2 32 mmHg (35-45) L 02/21/19 16:27 ABG pO2 91 mmHg (85-104) 02/21/19 16:27 ABG O2 Saturation 98 % (95-98) 02/21/19 16:27 - Impressions Impressions Chest X-Ray 02/21/19 14:12 IMPRESSION: No acute cardiopulmonary disease. D/ / 02/21/2019 15:40:50 [facility] Interpreting Provider: Kris Padilla MD Head CT 02/21/19 14:13 IMPRESSION: No acute intracranial abnormality. D/ / Kris Padilla MD / Kris Padilla MD Interpreting Provider: Kris Padilla MD Consult Discharge Plan - Plan Referrals: Joseph Matthews MD [Primary Care Provider] - (1) Sepsis Qualifiers: Sepsis type: sepsis due to unspecified organism Sepsis acute organ dysfunction status: without acute organ dysfunction Qualified Code(s): A41.9 - Sepsis, unspecified organism (3) UTI (urinary tract infection) Qualifiers: Urinary tract infection type: acute cystitis Hematuria presence: with hematuria Qualified Code(s): N30.01 - Acute cystitis with hematuria (6) Diabetes mellitus Qualifiers: Diabetes mellitus type: type 2 Diabetes mellitus local intermodal truck driver insulin use: with local intermodal truck driver use Diabetes mellitus complication status: with hyperglycemia Qualified Code(s): E11.65 - Type 2 diabetes mellitus with hyperglycemia; Z79.4 - [facility] (current) use of insulin
[2019-02-22] MEDS: *HR* Heparin 5,000 UNIT/ML VIAL SQ SCH ×2 (13:43→21:27)
[2019-02-22] MEDS ORDERED: *HR* Dextrose 50 % in Water (Syg) 50 ML SYRINGE IVP PRN (15:36)
[2019-02-22] MEDS ORDERED: D5% in Water 1,000 ML IVC PRN (15:36)
[2019-02-22] MEDS ORDERED: Dextrose Gel 15 GM/37.5 ML TUBE PO PRN ×2 (15:36)
[2019-02-22 16:50] LABS: BUN/Creatinine Ratio 15 (6-26); Blood Urea Nitrogen 11 mg/dL (6-20); Carbon Dioxide 14 mEq/L (23-29); Chloride 116 mEq/L (98-107); Glucose 331 mg/dL (70-105); Osmolality,Calculated 316 (280-300); Sodium 147 mEq/L (136-145); eGFR For African Americans > 60 (> 60); eGFR For Non-African Americans > 60 (> 60)
[2019-02-22 17:53] LABS: BUN/Creatinine Ratio 13 (6-26); Blood Urea Nitrogen 12 mg/dL (6-20); Calcium 6.7 mg/dL (8.6-10.3); Carbon Dioxide 17 mEq/L (23-29); Chloride 112 mEq/L (98-107); Glucose 356 mg/dL (70-105); Osmolality,Calculated 304 (280-300); Potassium 3.5 mEq/L (3.5-5.1); Sodium 140 mEq/L (136-145); eGFR For African Americans > 60 (> 60); eGFR For Non-African Americans > 60 (> 60)
[2019-02-22] MEDS: Insulin LISPRO 300 UNITS/3 ML VIAL SQ SCH ×2 (18:04→21:36)
[2019-02-22] MEDS: Calcium Gluconate 1gm/50mL 1 GM/50 ML BAG IVPB SCH (18:09)
[2019-02-22 18:20] LABS: Estimated Average Glucose 226 mg/dl
[2019-02-22] MEDS: 0.9 % Sodium Chloride w KCl 20 MEQ/1,000 ML MLS IVC SCH (19:46)
[2019-02-22 22:17] LABS: VBG Ionized Calcium 1.15 mmol/L (1.15-1.35)
[2019-02-22 22:30] LABS: BUN/Creatinine Ratio 15 (6-26); Blood Urea Nitrogen 13 mg/dL (6-20); Carbon Dioxide 18 mEq/L (23-29); Chloride 113 mEq/L (98-107); Glucose 323 mg/dL (70-105); Magnesium 1.8 mg/dL (1.6-2.6); Osmolality,Calculated 301 (280-300); Potassium 3.1 mEq/L (3.5-5.1); Sodium 139 mEq/L (136-145); eGFR For African Americans > 60 (> 60); eGFR For Non-African Americans > 60 (> 60)
[2019-02-23 05:24] LABS: VBG Ionized Calcium 0.99 mmol/L (1.15-1.35)
[2019-02-23] MEDS: 0.9 % Sodium Chloride w KCl 20 MEQ/1,000 ML MLS IVC SCH ×3 (06:12→18:42)
[2019-02-23] MEDS: *HR* Heparin 5,000 UNIT/ML VIAL SQ SCH ×3 (06:12→20:40)
[2019-02-23 06:30] LABS: VBG Ionized Calcium 1.17 mmol/L (1.15-1.35)
[2019-02-23 06:32] LABS: Basophils % 0.1 %; Hematocrit 27.3 % (35.3-44.9); Immature Granulocytes % 0.6 % (0-4); Lymphocytes # 1.2 K/mcL (0.6-4.6); Lymphocytes % 16.6 %; Mean Corpuscular Hemoglobin 25.9 pg (28.0-33.3); Mean Corpuscular Volume 86.1 fL (83.0-100.0); Mean Platelet Volume 11.7 fL (9.4-12.4); Monocytes # 0.2 K/mcL (0.0-1.3); Monocytes % 3.2 %; Neutrophils # 5.5 K/mcL (1.6-8.9); Platelet Count 143 K/mcL (140-400); Red Blood Count 3.17 M/mcL (3.82-4.97); Segmented Neutrophils % 79.5 %
[2019-02-23 06:33] LABS: Hemoglobin 8.2 g/dL (11.5-15.4)
[2019-02-23 06:44] LABS: BUN/Creatinine Ratio 19 (6-26); Blood Urea Nitrogen 15 mg/dL (6-20); Calcium 7.3 mg/dL (8.6-10.3); Carbon Dioxide 18 mEq/L (23-29); Chloride 113 mEq/L (98-107); Glucose 284 mg/dL (70-105); Magnesium 2.3 mg/dL (1.6-2.6); Osmolality,Calculated 305 (280-300); Phosphorous 2.8 mg/dL (2.7-4.5); Potassium 3.8 mEq/L (3.5-5.1); Sodium 142 mEq/L (136-145); eGFR For African Americans > 60 (> 60); eGFR For Non-African Americans > 60 (> 60)
[2019-02-23] MEDS ORDERED: Aminoglycoside Consult 1 EACH MC ONE (07:58)
--- NOTE | 2019-02-23 08:41 | Internal Med Progress Note ---
Hospitalist Progress Note - Encounter Date of Encounter: 02/23/19 Time of Encounter: 07:20 - Subjective Interval History: Patient looks and feels much better; BP still a little soft but MAP remains consistently above 65. Stool negative for C. Diff. Patient denies any further nausea, vomiting, but liquid stool persists. Will advance diet and monitor symptoms. She has a non-gap acidosis which is likely due to GI losses. Will decrease stress dose steroids and monitor electrolytes. Will order GI panel given persistent diarrhea/loose stool. - Exam Vitals: Temp Pulse Resp BP Pulse Ox 97.4 F L 68 16 98/68 100 02/23/19 08:34 02/23/19 08:00 02/23/19 08:00 02/23/19 08:00 02/23/19 08:00 Exam: General: NAD; more alert, per yesterday back to baseline HEENT: neck supple, dry mucosa Chest: CTA B, NO WRRR, RRR, No MTR Abdomen: soft, NT ND, + BS, no HSMG; non-tender Ext: no CCE; no calf pain, full ROM Neuro: A&Ox3; no focal deficits Skin: warm and dry; cap refill ~ 3-4 seconds - Assessment and Plan (1) Sepsis Current Visit: Yes Status: Acute Assessment and Plan: 1. Off pressors since yesterday afternoon. 2. Wean stress dose steroids and IVF. 3. Monitor hemodynamics. 4. Follow cultures; urine likely source. 5. De-escalate antibiotics by tomorrow. (2) Hypokalemia Current Visit: Yes Status: Acute Assessment and Plan: 1. Correct as needed and monitor closely. 2. Improved. (3) UTI (urinary tract infection) Current Visit: Yes Status: Acute Assessment and Plan: 1. Continue Rocephin. 2. Follow cultures. (4) Hypophosphatemia Current Visit: Yes Status: Acute Assessment and Plan: 1. Corrected; monitor. (5) Diabetes mellitus Current Visit: Yes Status: Chronic Assessment and Plan: 1. Add Levemir and continue SSI. 2. No oral home diabetic meds while in hospital. (6) DVT prophylaxis Current Visit: Yes Status: Acute Assessment and Plan: 1. Heparin SQ. - Time Spent with Patient Total time spent is greater than 50% in coordination of care (as documented) at patient's floor/unit and/or counseling patient: Plan of Care Discussed with: other (MDR team) Internal Medicine: Result - Labs CBC & Chem 7: 02/23/19 06:05 02/23/19 06:05 Labs: Short CBC 02/23/19 Range/Units 06:05 WBC 7.0 (4.3-11.1) K/mcL Hgb 8.2 L D (11.5-15.4) g/dL Hct 27.3 L (35.3-44.9) % Plt Count 143 (140-400) K/mcL Neutrophils # 5.5 (1.6-8.9) K/mcL BMP 02/22/19 02/22/19 02/22/19 08:07 11:20 15:58 Sodium 137 136 147 H D Potassium 2.6 L 2.9 L 6.0 H D Chloride 109 H 108 H 116 H Carbon Dioxide 20 L 19 L 14 L BUN 11 11 11 Creatinine 0.89 0.89 0.73 Glucose 307 H 294 H 331 H Calcium 7.0 L 6.9 L 6.0 L* 02/22/19 02/22/19 02/23/19 17:16 21:55 06:05 Sodium 140 139 142 Potassium 3.5 D 3.1 L 3.8 Chloride 112 H 113 H 113 H Carbon Dioxide 17 L 18 L 18 L BUN 12 13 15 Creatinine 0.93 0.87 0.79 Glucose 356 H 323 H 284 H Calcium 6.7 L 7.0 L 7.3 L - ABG Interpretation ABG results: ABG ABG pH 7.49 pH Units (7.32-7.45) H 02/21/19 16:27 ABG pCO2 32 mmHg (35-45) L 02/21/19 16:27 ABG pO2 91 mmHg (85-104) 02/21/19 16:27 ABG O2 Saturation 98 % (95-98) 02/21/19 16:27 Consult Discharge Plan - Plan Referrals: Joseph Matthews MD [Primary Care Provider] - (1) Sepsis Qualifiers: Sepsis type: sepsis due to unspecified organism Sepsis acute organ dysfunction status: without acute organ dysfunction Qualified Code(s): A41.9 - Sepsis, unspecified organism (3) UTI (urinary tract infection) Qualifiers: Urinary tract infection type: acute cystitis Hematuria presence: with hematuria Qualified Code(s): N30.01 - Acute cystitis with hematuria (5) Diabetes mellitus Qualifiers: Diabetes mellitus type: type 2 Diabetes mellitus half-way insulin use: with emt intermediate use Diabetes mellitus complication status: with hyperglycemia Qualified Code(s): E11.65 - Type 2 diabetes mellitus with hyperglycemia; Z79.4 - continuous churn buttermaker (current) use of insulin
[2019-02-23] MEDS ORDERED: Water for inj. (sterile) 20 ML IV ONE (08:53)
[2019-02-23] MEDS: cefTRIAXone 2,000 MG in Water for inj. (sterile) 20 ML IVP SCH (09:32)
[2019-02-23] MEDS: MetroNIDAZOLE 500 MG/100 ML 500 MG/100 ML BAG IVPB SCH ×2 (09:33→16:39)
[2019-02-23] MEDS: Insulin LISPRO 300 UNITS/3 ML VIAL SQ SCH ×4 (09:34→20:40)
[2019-02-23] MEDS: Insulin DETEMIR 100 UNIT/ML X5UNITS SQ SCH ×2 (09:35→20:40)
[2019-02-23] MEDS: Norepinephrine 4 MG in 0.9 % Sodium Chloride 250 ML IVC SCH (10:32)
[2019-02-23 15:56] LABS: BUN/Creatinine Ratio 21 (6-26); Blood Urea Nitrogen 16 mg/dL (6-20); Calcium 6.9 mg/dL (8.6-10.3); Carbon Dioxide 17 mEq/L (23-29); Chloride 113 mEq/L (98-107); Glucose 289 mg/dL (70-105); Magnesium 2.2 mg/dL (1.6-2.6); Osmolality,Calculated 298 (280-300); Phosphorous 2.9 mg/dL (2.7-4.5); Sodium 138 mEq/L (136-145); eGFR For African Americans > 60 (> 60); eGFR For Non-African Americans > 60 (> 60)
[2019-02-23] MEDS: Hydrocortisone Sodium Succ 100 MG/2 ML VIAL IVP SCH (16:40)
[2019-02-23] MEDS: Ondansetron 4 MG/2 ML VIAL IVP PRN (16:57)
[2019-02-23] MEDS: Calcium Gluconate 1gm/50mL 1 GM/50 ML BAG IVPB SCH (17:19)
[2019-02-24] MEDS: MetroNIDAZOLE 500 MG/100 ML 500 MG/100 ML BAG IVPB SCH (00:08)
[2019-02-24] MEDS: Hydrocortisone Sodium Succ 100 MG/2 ML VIAL IVP SCH (00:09)
[2019-02-24 03:26] LABS: Basophils % 0.1 %; Hematocrit 29.7 % (35.3-44.9); Hemoglobin 9.2 g/dL (11.5-15.4); Immature Granulocytes % 0.3 % (0-4); Lymphocytes # 1.3 K/mcL (0.6-4.6); Lymphocytes % 19.4 %; Mean Corpuscular Hemoglobin 26.4 pg (28.0-33.3); Mean Corpuscular Volume 85.3 fL (83.0-100.0); Mean Platelet Volume 10.6 fL (9.4-12.4); Monocytes # 0.2 K/mcL (0.0-1.3); Monocytes % 3.4 %; Neutrophils # 5.2 K/mcL (1.6-8.9); Platelet Count 152 K/mcL (140-400); Red Blood Count 3.48 M/mcL (3.82-4.97); Red Cell Distribution Width 19.4 % (11.5-14.5); Segmented Neutrophils % 76.8 %; White Blood Count 6.8 K/mcL (4.3-11.1)
[2019-02-24 03:28] LABS: VBG Ionized Calcium 1.16 mmol/L (1.15-1.35)
[2019-02-24 04:04] LABS: BUN/Creatinine Ratio 20 (6-26); Blood Urea Nitrogen 14 mg/dL (6-20); Calcium 7.3 mg/dL (8.6-10.3); Carbon Dioxide 18 mEq/L (23-29); Chloride 117 mEq/L (98-107); Glucose 208 mg/dL (70-105); Magnesium 1.9 mg/dL (1.6-2.6); Osmolality,Calculated 299 (280-300); Phosphorous 2.5 mg/dL (2.7-4.5); Potassium 3.9 mEq/L (3.5-5.1); Sodium 141 mEq/L (136-145); eGFR For African Americans > 60 (> 60); eGFR For Non-African Americans > 60 (> 60)
[2019-02-24] MEDS: *HR* Heparin 5,000 UNIT/ML VIAL SQ SCH ×3 (06:11→21:13)
[2019-02-24] MEDS: Insulin LISPRO 300 UNITS/3 ML VIAL SQ SCH ×4 (07:33→21:11)
--- NOTE | 2019-02-24 08:24 | Internal Med Progress Note ---
Hospitalist Progress Note - Encounter Date of Encounter: 02/24/19 Time of Encounter: 07:15 - Subjective Interval History: Patient looks and feels much better. She denies CP, SOB, nausea, or vomiting. Diarrhea is much better and slowing down. Electrolytes are improved and stabilizing. Will transfer patient to step down unit and out of ICU today. She will need outpatient referral to endocrinology for suspected adrenal insufficiency. She will also need a long, slow taper from her hydrocortisone and likely maintenance hydrocortisone until she could establish with endocrinology. - Exam Vitals: Temp Pulse Resp BP Pulse Ox 97.5 F L 53 18 94/63 97 02/24/19 03:46 02/24/19 06:00 02/24/19 06:00 02/24/19 06:00 02/24/19 06:00 Exam: General: NAD; alert, pleasant, no complaints HEENT: no icterus, moist mucosa, neck supple Chest: CTA B, no WRR, RRR, bradycardia (HR 50's), no appreciable MTR Abdomen: soft, NT, ND, No HSMG, + BS, no rebound, no guarding Ext: trace edema; 2+ pulses; no calf pain, full ROM Neuro: A&Ox3; no focal deficits Skin: warm and dry, no rash Psych: pleasant and appropriate - Assessment and Plan (1) Sepsis Current Visit: Yes Status: Acute Assessment and Plan: 1. Much improved; secondary to UTI. 2. P-lock IVF today; patient maintaining hydration orally now. 3. Blood cultures negative. 4. Urine culture + for E. Coli; treated with Rocephin. 5. Lactates have all been normal. (2) Adrenal insufficiency Current Visit: Yes Status: Suspected Assessment and Plan: 1. GI symptoms and electrolytes did not start to improve until I added stress dose steroids. 2. Baseline AM cortisol was low in the setting of sepsis; as such, hydrocortisone was added to other supportive measures (IVF and pressors) at that time to maintain hemodynamic stability. She had significant improvement with steroids and GI symptoms improved drastically. Stool was negative for C. Diff. 3. Will need prolonged and slow taper from Hydrocortisone and likely maintenance dosing upon discharge until she can be referred and established with endocrinology and undergo formal ACTH stim test. (3) Hypokalemia Current Visit: Yes Status: Acute Assessment and Plan: 1. Corrected; monitor for now. 2. Suspect electrolyte imbalance from prolonged course of gastroenteritis (2 weeks) prior to admission +/- adrenal insufficiency. 3. Monitor chemistries; correct as necessary; slow taper from hydrocortisone. (4) UTI (urinary tract infection) Current Visit: Yes Status: Acute Assessment and Plan: 1. On Rocephin for UTI. 2. Convert to oral antibiotics prior to discharge. (5) Hypophosphatemia Current Visit: Yes Status: Acute Assessment and Plan: 1. As above; correct electrolytes as necessary. 2. Monitor daily. 3. Steadily improving. (6) Diabetes mellitus Current Visit: Yes Status: Chronic Assessment and Plan: 1. Off oral home meds while in hospital. 2. Increase Levemir (basal insulin) today and continue SSI. 3. Monitor and adjust SSI as necessary. (7) Prolonged Q-T interval on ECG Current Visit: Yes Status: Acute Assessment and Plan: 1. Will repeat EKG today. 2. Consult cardiology for guidance regarding Long QTc and resuming psychiatric medications as they can prolong QTc. 3. ECHO ordered. 4. Monitor and correct electrolytes as above. (8) DVT prophylaxis Current Visit: Yes Status: Acute Assessment and Plan: 1. Heparin SQ. - Time Spent with Patient Total time spent is greater than 50% in coordination of care (as documented) at patient's floor/unit and/or counseling patient: Greater than 35 minutes Plan of Care Discussed with: other (PIERCE dumont) Internal Medicine: Result - Labs CBC & Chem 7: 02/24/19 03:13 02/24/19 03:13 Labs: Short CBC 02/24/19 Range/Units 03:13 WBC 6.8 (4.3-11.1) K/mcL Hgb 9.2 L (11.5-15.4) g/dL Hct 29.7 L (35.3-44.9) % Plt Count 152 (140-400) K/mcL Neutrophils # 5.2 (1.6-8.9) K/mcL BMP 02/23/19 02/24/19 15:15 03:13 Sodium 138 141 Potassium 3.0 L 3.9 D Chloride 113 H 117 H Carbon Dioxide 17 L 18 L BUN 16 14 Creatinine 0.76 0.71 Glucose 289 H 208 H Calcium 6.9 L 7.3 L - ABG Interpretation ABG results: ABG ABG pH 7.49 pH Units (7.32-7.45) H 02/21/19 16:27 ABG pCO2 32 mmHg (35-45) L 02/21/19 16:27 ABG pO2 91 mmHg (85-104) 02/21/19 16:27 ABG O2 Saturation 98 % (95-98) 02/21/19 16:27 Consult Discharge Plan - Plan Referrals: Joseph Matthews MD [Primary Care Provider] - (1) Sepsis Qualifiers: Sepsis type: sepsis due to unspecified organism Sepsis acute organ dysfunction status: without acute organ dysfunction Qualified Code(s): A41.9 - Sepsis, unspecified organism (4) UTI (urinary tract infection) Qualifiers: Urinary tract infection type: acute cystitis Hematuria presence: with hematuria Qualified Code(s): N30.01 - Acute cystitis with hematuria (6) Diabetes mellitus Qualifiers: Diabetes mellitus type: type 2 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
[2019-02-24] MEDS: cefTRIAXone 2,000 MG in Water for inj. (sterile) 20 ML IVP SCH (08:43)
[2019-02-24] MEDS ORDERED: Insulin DETEMIR 100 UNIT/ML X5UNITS SQ SCH (09:00)
[2019-02-24] MEDS ORDERED: Hydrocortisone 10 MG TABLET PO SCH (09:00)
[2019-02-24] MEDS: Norepinephrine 4 MG in 0.9 % Sodium Chloride 250 ML IVC SCH (11:13)
--- NOTE | 2019-02-24 11:53 | Cardiology Consult Note ---
<Sunil Soni R - Last Filed: 02/24/19 12:32> Date of Encounter: 02/24/19 Time of Encounter: 11:52 Assessment and Plan (1) Prolonged QT interval Current Visit: Yes Status: Acute Prolonged QTc on admisson, 523ms in setting of tachycardia and hypokalemia--K 2.3, now corrected. ECG obtained this AM QTc improved to 418ms. On Prozac, Abilify, Topamax, Ativan. Cardiology consulted to determine if safe to resume. I reviewed ECG from 12/2017 and QTc at that time was 423ms. Reviewed [facility] records and at that time she was on Prozac, Topamax and Ativan. Given past QTc was not prolonged on these meds, it seems reasonable to resume her home psychiatric meds and monitor ECG/QTc at regular intervals. Recommend repeat ECG 48 hours after meds are resumed. TTE pending. Anticipate sign off once seen and evaluated by Dr. Kearns. Discussion w patient/family: The assessment and plan as outlined above was discussed with the patient and/or family members who expressed understanding and agreement. All questions were answered. Thank you for involving us in the care of your patient. Please call with any questions. I will discuss all the above with Dr. Kearns and make changes as necessary. History of Present Illness Consult date: 02/24/19 Requesting physician: Freddy Luna Consult reason: QTc prolonged Chief complaint: weakness History of present illness: Ms. Blue is a 48 year old female with PMH of diabetes type 2 non- insulin dependent, hyperlipidemia, anxiety, depression, mood disorder. Presented to the ER with weakness as worsened over the past few weeks. She stat es that she has not been able to keep food or water down for 2 weeks. Reports vomiting. She was found to have UTI and sepsis, hypokalemia K 2.3 and noted to have a prolonged QTc on admisson, 523ms. ECG obtained this AM QTc improved to 418ms. Given she is on multiple psychiatric meds and concern for prolonged QTc, cardiology consulted for further recs. She denies chest pain, dyspnea or syncope. TTE pending. Past Med Surg Social Fam HX - Past Medical History Medical history: diabetes, GERD, hyperlipidemia, hypertension Additional medical history: Anxiety, Bipolar Disorder, neuropathy-arms, renal lithiasis, fibrocystic breast disease. Depression, Obesity. Endometriosis. Seasonal Allergies Psychiatric history: bipolar - Past Surgical History Surgical History: cholecystectomy Additional surgical history: kidney stone,tubal ligation,hydrothermal ablasion - Social History Smoking Status: Former smoker Smokeless Tobacco Status: No Alcohol use: none Drug use: none Medications and Allergies Aspirin Enteric Coated [Aspirin EC] 325 mg PO DAILY 01/09/18 [History] Cholecalciferol (Vitamin D3) [Vitamin D3] 10,000 unit PO MOTH 01/09/18 [History] Glimepiride [Amaryl] 4 mg PO DAILY 01/09/18 [History] LORazepam [Ativan] 1 mg PO QAM 01/09/18 [History] LORazepam [Ativan] 2 mg PO HS 01/09/18 [History] Metformin HCl 1,000 mg PO BID 01/09/18 [History] Omeprazole [PriLOSEC] 20 mg PO DAILY 01/09/18 [History] Pioglitazone HCl 30 mg PO DAILY 01/09/18 [History] Potassium Chloride [Klor-Con 10] 10 meq PO DAILY 01/09/18 [History] Simvastatin [Zocor] 40 mg PO HS 01/09/18 [History] Topiramate [Topamax] 100 mg PO HS 01/09/18 [History] Topiramate [Topamax] 200 mg PO QAM 01/09/18 [History] ARIPiprazole [Abilify] 5 mg PO DAILY 02/21/19 [History] FLUoxetine HCl [Fluoxetine HCl] 40 mg PO DAILY 02/21/19 [History] Liraglutide [Victoza 3-Curtis] 1.8 mg SQ DAILY 02/21/19 [History] Allergy/AdvReac Type Severity Reaction Status Date / Time divalproex sodium AdvReac Headache Verified 02/21/19 13:28 [From Depakote] glyburide [From Micronase] AdvReac Vomiting Verified 02/21/19 13:28 All Systems Review: The remainder of the systems were reviewed and are negative Physical Examination Vital Signs, Last 4 Hours Temp Pulse Resp BP Pulse Ox 02/24/19 11:45 98.6 F 02/24/19 11:00 62 15 98/65 98 02/24/19 10:00 55 13 95/76 98 02/24/19 09:00 78 16 115/76 99 09/15/19 08:52 98.4 F 02/24/19 08:01 58 15 111/69 98 02/24/19 08:00 67 Vital Signs Temp Pulse Resp BP Pulse Ox 02/24/19 11:45 98.6 F 02/24/19 11:00 62 15 98/65 98 02/24/19 10:00 55 13 95/76 98 02/24/19 09:00 78 16 115/76 99 02/24/19 08:52 98.4 F 02/24/19 08:01 58 15 111/69 98 02/24/19 08:00 67 02/24/19 07:00 60 15 100/66 98 02/24/19 06:00 53 18 94/63 97 02/24/19 05:00 55 13 90/57 97 02/24/19 04:00 58 15 99/63 98 02/24/19 03:46 97.5 F L 02/24/19 03:00 58 15 94/62 97 02/24/19 02:00 64 14 101/66 98 02/24/19 01:00 54 14 91/60 96 02/24/19 00:03 97.5 F L 02/24/19 00:00 55 16 81/54 95 02/23/19 23:00 58 16 76/55 97 02/23/19 22:00 67 16 87/65 99 02/23/19 21:00 69 16 152/114 99 02/23/19 20:00 69 16 134/75 99 02/23/19 19:00 97.3 F L 75 20 129/107 100 02/23/19 18:00 71 15 143/88 02/23/19 17:00 67 14 131/84 100 02/23/19 16:16 97.9 F 02/23/19 16:00 72 02/23/19 15:00 66 20 124/80 100 02/23/19 14:00 73 15 79/57 99 02/23/19 13:00 82 16 93/63 99 Intake and Output 02/23/19 02/24/19 02/24/19 23:59 07:59 15:59 Intake Total 1360 / 2970 100 / 1270 1170 / 1270 Output Total 200 / 1025 100 / 400 300 / 400 Balance 1160 / 1945 0 / 870 870 / 870 Intake: IV Fluids 1360 / 2730 100 / 1120 1020 / 1120 KCl 20 mEq in 0.9% Sodium 1000 / 2000 1000 / 1000 Chloride 20 meq In 1,000 ml @ 125 mls/hr IVC .Q8H [facility] Rx#: [id number] Rocephin 2,000 MG In Water for 20 / 20 inj. (sterile) 20 ML @ 1200 mls /hr IVP DAILY [facility] Rx#: [id number] Flagyl Premix 500 MG/100 ML 500 100 / 300 100 / 100 mg In 100 ml @ 100 mls/hr IVPB Q8HR [facility] Rx#:[id number] Sodium Phosphate 30 MMOL In 0.9 260 / 260 % Sodium Chloride 250 ML @ 42 mls/hr IVPB Q12H PRN Rx#: [id number] Oral 150 / 150 Output: Urine 200 / 400 100 / 200 100 / 200 Catheter 200 / 200 Other: Meal Breakfast Percent of Meal Consumed 15% Stool Size Large Small Small Stool Consistency liquid liquid liquid Stool Color Brown Brown Yellow # Voids 1 # Bowel Movements 1 1 Weight 96.3 kg 96.3 kg Blood Glucose* 209 181 Patient Weight 02/24/19 23:59 Weight 96.3 kg General: Conversant, No Apparent Distress HEENT: Atraumatic, Normocephaly, Mucus Membranes Moist Neck: No JVD, Normal carotid pulses Cardiac: Reg Rate and Rhythm, Normal S1 and S2, No Murmur Lungs: Normal Breath Sounds, No Wheeze, Rales, Rhonchi Neuro: Alert and responsive, No focal deficits noted Abdomen: Soft, Non-Tender Skin: No rashes noted on visualized skin Musculoskeletal: No Chest Wall Tenderness Extremities: No Clubbing, No Cyanosis, No Edema, Normal Pulses Results 02/24/19 03:13 02/24/19 03:13 Lab Results 02/23/19 02/24/19 02/24/19 15:15 03:13 03:13 WBC 6.8 Hgb 9.2 L Hct 29.7 L Plt Count 152 Sodium 138 141 Potassium 3.0 L 3.9 D Chloride 113 H 117 H Carbon Dioxide 17 L 18 L BUN 16 14 Creatinine 0.76 0.71 Glucose 289 H 208 H Calcium 6.9 L 7.3 L Magnesium 2.2 1.9 Short CBC 02/24/19 Range/Units 03:13 WBC 6.8 (4.3-11.1) K/mcL Hgb 9.2 L (11.5-15.4) g/dL Hct 29.7 L (35.3-44.9) % Plt Count 152 (140-400) K/mcL Neutrophils # 5.2 (1.6-8.9) K/mcL BMP 02/24/19 02/23/19 Range/Units 03:13 15:15 Sodium 141 138 (136-145) mEq/L Potassium 3.9 D 3.0 L (3.5-5.1) mEq/L Chloride 117 H 113 H (98-107) mEq/L Carbon Dioxide 18 L 17 L (23-29) mEq/L BUN 14 16 (6-20) mg/dL Creatinine 0.71 0.76 (0.60-1.20) mg/dL Glucose 208 H 289 H (70-105) mg/dL Calcium 7.3 L 6.9 L (8.6-10.3) mg/dL Active Medications Dextrose/Water (Dextrose 50% (Syg)) 25 ml IVP AD PRN PRN Reason: Hypoglycemia Stop: 08/24/19 15:37 Glucagon (Glucagen) 1 mg IM ONCE PRN PRN Reason: Hypoglycemia Stop: 08/24/19 15:37 Glucose (Gluctose) 15 gm PO ONCE PRN PRN Reason: Hypoglycemia Stop: 08/24/19 15:37 Glucose (Gluctose) 30 gm PO ONCE PRN PRN Reason: Hypoglycemia Stop: 08/24/19 15:37 Heparin Sodium (Porcine) (Heparin) 5,000 unit SQ Q8HCO [facility]; Protocol Stop: 08/24/19 14:01 Hydrocortisone (Cortef) 20 mg PO TID [facility] Stop: 08/26/19 09:01 Ceftriaxone Sodium 2,000 mg/ (Sterile Water) 20 mls @ 1,200 mls/hr IVP DAILY S Stop: 08/24/19 09:01 Dextrose (Dextrose 5%) 1,000 mls @ 100 mls/hr IVC .Q10H PRN PRN Reason: HYPOGLYCEMIA Stop: 08/24/19 15:37 Insulin Detemir (Levemir) 10 unit SQ BID [facility] Stop: 08/26/19 09:01 Insulin Human Lispro (Humalog) 0 units SQ TIDAC JESSICA; Protocol Stop: 08/24/19 16:31 Insulin Human Lispro (Humalog) 0 units SQ HS JESSICA; Protocol Stop: 08/24/19 21:01 Naloxone HCl (Narcan) 0.4 mg IVP Q2MPRN PRN PRN Reason: SEE COMMENTS Stop: 08/23/19 17:20 Ondansetron HCl (Zofran) 4 mg IVP Q6H PRN; Protocol PRN Reason: Nausea Stop: 08/23/19 23:49 - Imaging and Cardiology Echo: pending - EKG Interpretation EKG results cardiology: personally reviewed Consult Discharge Plan - Plan Referrals: Joseph Matthews MD [Primary Care Provider] - <UrmilaCarine - Last Filed: 02/24/19 15:29> Date of Encounter: 02/24/19 - Attending Attestation I examined this patient and my medical decision-making was reviewed with the OUTER DIAMETER TECHNICIAN. I agree with the documented findings, disposition and treatment plan as described. Ms. Blue presented with prolonged QTc interval in setting of hypokalemia while on psychopharmacotherapy. ECG now normal after potassium was corrected. Incidentally, her medications were also stopped. Looking back, QTc on ECG was normal while on topamax, ativan and prozac in December 2017. If these medications are necessary, recommend cautious reintroduction with regular ECG and electrolyte monitoring. No further recommendations. Will sign off. Please call with questions. Assessment and Plan Discussion w patient/family: The assessment and plan as outlined above was discussed with the patient and/or family members who expressed understanding and agreement. All questions were answered. Thank you for involving us in the care of your patient. Please call with any questions. History of Present Illness History of present illness: Ms. Blue is a 48 year old female All Systems Review: The remainder of the systems were reviewed and are negative Physical Examination Vital Signs, Last 4 Hours Temp Pulse Resp BP Pulse Ox 02/24/19 13:00 80 02/24/19 12:49 98.7 F 64 16 127/75 98 02/24/19 11:45 98.6 F Results 02/24/19 03:13 02/24/19 03:13 Lab Results 02/23/19 02/24/19 02/24/19 15:15 03:13 03:13 WBC 6.8 Hgb 9.2 L Hct 29.7 L Plt Count 152 Sodium 138 141 Potassium 3.0 L 3.9 D Chloride 113 H 117 H Carbon Dioxide 17 L 18 L BUN 16 14 Creatinine 0.76 0.71 Glucose 289 H 208 H Calcium 6.9 L 7.3 L Magnesium 2.2 1.9
[2019-02-24] MEDS ORDERED: D5% in Water 1,000 ML IVC PRN (12:32)
[2019-02-24] MEDS ORDERED: Ondansetron 4 MG/2 ML VIAL IVP PRN (12:32)
[2019-02-24] MEDS ORDERED: Naloxone 0.4 MG/ML INJ IVP PRN (12:32)
[2019-02-24] MEDS ORDERED: Dextrose Gel 15 GM/37.5 ML TUBE PO PRN ×2 (12:32)
[2019-02-24] MEDS ORDERED: *HR* Dextrose 50 % in Water (Syg) 50 ML SYRINGE IVP PRN (12:32)
[2019-02-24] MEDS: Hydrocortisone 10 MG TABLET PO SCH ×2 (16:15→21:08)
[2019-02-24 18:31] LABS: BUN/Creatinine Ratio 19 (6-26); Blood Urea Nitrogen 13 mg/dL (6-20); Calcium 7.5 mg/dL (8.6-10.3); Carbon Dioxide 18 mEq/L (23-29); Chloride 113 mEq/L (98-107); Glucose 258 mg/dL (70-105); Magnesium 1.7 mg/dL (1.6-2.6); Osmolality,Calculated 297 (280-300); Phosphorous 1.8 mg/dL (2.7-4.5); Potassium 3.4 mEq/L (3.5-5.1); Sodium 139 mEq/L (136-145); eGFR For African Americans > 60 (> 60); eGFR For Non-African Americans > 60 (> 60)
[2019-02-24] MEDS: Insulin DETEMIR 100 UNIT/ML X5UNITS SQ SCH (21:10)
[2019-02-24] MEDS: Potassium Chloride Elixir 20 MEQ/15 ML UDC PO SCH (21:10)
[2019-02-25 04:20] LABS: BUN/Creatinine Ratio 17 (6-26); Blood Urea Nitrogen 11 mg/dL (6-20); Calcium 7.2 mg/dL (8.6-10.3); Carbon Dioxide 18 mEq/L (23-29); Chloride 115 mEq/L (98-107); Glucose 196 mg/dL (70-105); Magnesium 1.8 mg/dL (1.6-2.6); Osmolality,Calculated 291 (280-300); Potassium 3.6 mEq/L (3.5-5.1); Sodium 138 mEq/L (136-145); eGFR For African Americans > 60 (> 60); eGFR For Non-African Americans > 60 (> 60)
[2019-02-25] MEDS: *HR* Heparin 5,000 UNIT/ML VIAL SQ SCH ×3 (05:27→20:57)
[2019-02-25] MEDS: Insulin LISPRO 300 UNITS/3 ML VIAL SQ SCH ×4 (07:41→20:57)
[2019-02-25] MEDS: Potassium Chloride Elixir 20 MEQ/15 ML UDC PO SCH (07:48)
[2019-02-25] MEDS: Insulin DETEMIR 100 UNIT/ML X5UNITS SQ SCH ×2 (07:49→20:57)
[2019-02-25] MEDS: Hydrocortisone 10 MG TABLET PO SCH ×3 (07:50→20:57)
--- NOTE | 2019-02-25 08:16 | Internal Med Progress Note ---
<Danitza Nunes - Last Filed: 02/25/19 14:12> Hospitalist Progress Note - Encounter Date of Encounter: 02/25/19 - Exam Vitals: Temp Pulse Resp BP Pulse Ox 97.7 F 63 16 120/90 97 02/25/19 11:12 02/25/19 11:12 02/25/19 11:12 02/25/19 11:12 02/25/19 11:12 - Time Spent with Patient Total time spent is greater than 50% in coordination of care (as documented) at patient's floor/unit and/or counseling patient: Internal Medicine: Result - Labs CBC & Chem 7: 02/24/19 03:13 02/25/19 03:45 Labs: BMP 02/24/19 02/25/19 17:50 03:45 Sodium 139 138 Potassium 3.4 L 3.6 Chloride 113 H 115 H Carbon Dioxide 18 L 18 L BUN 13 11 Creatinine 0.67 0.65 Glucose 258 H 196 H Calcium 7.5 L 7.2 L - ABG Interpretation ABG results: ABG ABG pH 7.49 pH Units (7.32-7.45) H 02/21/19 16:27 ABG pCO2 32 mmHg (35-45) L 02/21/19 16:27 ABG pO2 91 mmHg (85-104) 02/21/19 16:27 ABG O2 Saturation 98 % (95-98) 02/21/19 16:27 Consult Discharge Plan - Plan Referrals: Joseph Matthews MD [Primary Care Provider] - 03/06/19 1:15 pm - Attending Attestation I saw evaluated and examined this patient and reviewed objective data including labs and my medical decision-making was reviewed with the Resident Ph ysician/Medical Student. I agree with the documented findings, disposition and treatment plan as described except to any changes set forth below. We independently had [id number] contact with the patient. No acute events. Patient has delayed speech but answers questions a ppropriately. Denies fevers/chills, chest pain, SOB, palpitations, n/v. VS: reviewed. Gen: NAD, AAO x3, aware of situation but is slow speech. Neuro: no focal deficits, normal strength. Labs: reviewed, phos low. A/P: 1. Sepsis 2. Adrenal insufficiency 3. Hypokalemia 4. UTI 5. Hypophosphatemia 6. DM 7: QT prolongation - Continue antibiotics, de escalate to PO - Hydrocortisone taper - Replacement of electrolytes as needed - ISS, sliding scale. - Psychiatric medications will be added back cautiously to avoid QT prolongation. Recheck EKG in 1-2 days. <Gary Peng I - Last Filed: 02/25/19 18:22> Hospitalist Progress Note - Encounter Date of Encounter: 02/25/19 Time of Encounter: 09:10 - Subjective Interval History: Patient is seen and examined today . she feels much better. She denies CP, SOB, nausea, or vomiting. Diarrhea is much better and slowing down, no fever or chills , patient is stable , he transferred to - Exam Vitals: Temp Pulse Resp BP Pulse Ox 98.0 F 61 16 110/73 97 02/25/19 07:35 02/25/19 07:35 02/25/19 07:35 02/25/19 07:35 02/25/19 07:35 Exam: General: no acute distress , A&AX3 HEENT: Atraumatic, Normocephaly, sclera unicteric Neck: supple , Full ROM , trachea midline Cardiac: RRR , S1+. S2+ Lungs: Normal Breath Sounds Bilaterally, No Wheeze, Rales, Rhonchi Abdomen: Soft, Non-Tender ,no organomegaly , +bowel sounds Extremities: No Clubbing, No Cyanosis,or edema , Normal Pulses Skin : intact , Normal color Psychiatric : normal affect, normal mood Nuero : alert, normal gait, oriented X3 - Assessment and Plan (1) Sepsis Current Visit: Yes Status: Acute Assessment and Plan: resolved patient is clinically stable , vitals stable, wbc WNL Blood cultures negative. Urine culture + for E. Coli; treated with Rocephin. (2) UTI (urinary tract infection) Current Visit: Yes Status: Acute Assessment and Plan: patient received 5 days of Rocephin for UTI. we Convert to oral antibiotics bactrim for total 7 days (3) Prolonged QT interval Current Visit: Yes Status: Acute Assessment and Plan: repeated EKG showes QTC 454 will resume home psych med except for aripiprazole for сергей will repeat EKG at morning ECHO ordered. Monitor and correct electrolytes as above. (4) Hypokalemia Current Visit: Yes Status: Acute Assessment and Plan: k 3.6 . improved continue monitoring (5) Hyponatremia Current Visit: Yes Status: Acute Assessment and Plan: resolved (6) Diabetes mellitus Current Visit: Yes Status: Chronic Assessment and Plan: blood sugar 180 diabetic diet detemir 10 unit BID medium SSI (7) Hypophosphatemia Current Visit: Yes Status: Acute Assessment and Plan: phos level is 2 Monitor daily. (8) Adrenal insufficiency Current Visit: Yes Status: Suspected Assessment and Plan: -GI symptoms and electrolytes did not start to improve until I added stress dose steroids. - Baseline AM cortisol was low in the setting of sepsis; as such, hydrocortisone was added to other supportive measures (IVF and pressors) at that time to -maintain hemodynamic stability. She had significant improvement with steroids and GI symptoms improved drastically. Stool was negative for C. Diff. -Will need prolonged and slow taper from Hydrocortisone and likely maintenance dosing upon discharge until she can be referred and established with endocrinology and undergo formal ACTH stim test. - Time Spent with Patient Total time spent is greater than 50% in coordination of care (as documented) at patient's floor/unit and/or counseling patient: Internal Medicine: Result - Labs CBC & Chem 7: 02/24/19 03:13 02/25/19 15:54 Labs: BMP 02/24/19 02/25/19 17:50 03:45 Sodium 139 138 Potassium 3.4 L 3.6 Chloride 113 H 115 H Carbon Dioxide 18 L 18 L BUN 13 11 Creatinine 0.67 0.65 Glucose 258 H 196 H Calcium 7.5 L 7.2 L - ABG Interpretation ABG results: ABG ABG pH 7.49 pH Units (7.32-7.45) H 02/21/19 16:27 ABG pCO2 32 mmHg (35-45) L 02/21/19 16:27 ABG pO2 91 mmHg (85-104) 02/21/19 16:27 ABG O2 Saturation 98 % (95-98) 02/21/19 16:27 <GinetteOdalisgraciela I - Last Filed: 02/25/19 18:22> (1) Sepsis Qualifiers: Sepsis type: sepsis due to unspecified organism Sepsis acute organ dysfunction status: without acute organ dysfunction Qualified Code(s): A41.9 - Sepsis, unspecified organism (2) UTI (urinary tract infection) Qualifiers: Urinary tract infection type: acute cystitis Hematuria presence: with hematuria Qualified Code(s): N30.01 - Acute cystitis with hematuria (6) Diabetes mellitus Qualifiers: Diabetes mellitus type: type 2 Diabetes mellitus terminal block assembler insulin use: with care home use Diabetes mellitus complication status: with hyperglycemia Qualified Code(s): E11.65 - Type 2 diabetes mellitus with hyperglycemia; Z79.4 - intermediate project manager (current) use of insulin
[2019-02-25] MEDS ORDERED: cefTRIAXone 2,000 MG in Water for inj. (sterile) 20 ML IVP SCH (09:00)
--- NOTE | 2019-02-25 11:49 | Electrocardiograph Report ---
[address] [place], [place] [address] Test Date: 2019-02-21 Pat Name: Lashon Blue Department: [id number] Room: 2N12 Gender: F Qualitative Researcher: : 1970 Requested By: Alexis Fabian Order Number: [id number] Reading MD: Brian Muse Measurements Intervals [place] Rate: 112 P: 40 TX: 141 QRS: 231 QRSD: 95 T: 70 QT: 383 QTc: 523 Interpretive Statements Sinus tachycardia Inferior infarct, old Prolonged QT interval Electronically Signed On 02-25-2019 11:47:50 EDT by Brian Muse
[2019-02-25] MEDS ORDERED: Calcium Acetate 667 MG CAPSULE PO SCH (12:00)
--- NOTE | 2019-02-25 12:03 | Electrocardiograph Report ---
[address] [place], [place] [address] Test Date: 2019-02-21 Pat Name: Lashon Blue Department: 109 Room: 2N12 Gender: F Sling Operator: : 1970 Requested By: Graceila Roy Order Number: [id number] Reading MD: Brian Muse Measurements Intervals [place] Rate: 96 P: 6 ID: [id number] QRS: -23 QRSD: 91 T: 1 QT: 364 QTc: 418 Interpretive Statements SINUS RHYTHM INDETERMINATE AXIS Poor R wave progression Electronically Signed On 02-25-2019 12:01:43 EDT by Brian Muse
--- NOTE | 2019-02-25 12:07 | Electrocardiograph Report ---
[address] [address] Test Date: 2019-02-22 Pat Name: Lashon Blue Department: 109 Room: 2N12 Gender: F Vp Strategic Planning: WANDA : 1970 Requested By: Sana Donato Order Number: [id number] Reading MD: Brian Muse Measurements Intervals [place] Rate: 127 P: 21 AR: 110 QRS: -53 QRSD: 96 T: 30 QT: 364 QTc: 439 Interpretive Statements SINUS TACHYCARDIA WITH SHORT AR INTERVAL INDETERMINATE AXIS LEFT ANTERIOR FASCICULAR BLOCK Poor R wave progression BASELINE ARTIFACT Electronically Signed On 02-25-2019 12:05:58 EDT by Brian Muse
--- NOTE | 2019-02-25 13:14 | Electrocardiograph Report ---
[address] [place], [place] [address] Test Date: 2019-02-24 Pat Name: Lashon Blue Department: 109 Room: 2N12 Gender: F Petroleum Inspector: LÓPEZ : 1970 Requested By: Freddy Luan Order Number: [id number] Reading MD: Brian Muse Measurements Intervals [place] Rate: 71 P: 33 SC: 137 QRS: 5 QRSD: 89 T: 44 QT: 395 QTc: 418 Interpretive Statements SINUS RHYTHM BASELINE ARTIFACT Electronically Signed On 02-25-2019 13:13:13 EDT by Brian Muse
--- NOTE | 2019-02-25 14:06 | Electrocardiograph Report ---
[address] [place], [place] [address] Test Date: 2019-02-25 Pat Name: Lashon Blue Department: 110 Room: 2N12 Gender: F Utilization Supervisor: : 1970 Requested By: Gary Peng Order Number: [id number] Reading MD: Brian Muse Measurements Intervals [place] Rate: 65 P: 29 UT: 130 QRS: 11 QRSD: 87 T: 52 QT: 443 QTc: 454 Interpretive Statements SINUS RHYTHM BASELINE ARTIFACT Electronically Signed On 02-25-2019 14:04:54 EDT by Brian Muse
[2019-02-25 16:28] LABS: BUN/Creatinine Ratio 15 (6-26); Blood Urea Nitrogen 11 mg/dL (6-20); Calcium 8.1 mg/dL (8.6-10.3); Carbon Dioxide 20 mEq/L (23-29); Chloride 113 mEq/L (98-107); Glucose 180 mg/dL (70-105); Magnesium 1.8 mg/dL (1.6-2.6); Osmolality,Calculated 290 (280-300); Phosphorous 1.8 mg/dL (2.7-4.5); Potassium 3.5 mEq/L (3.5-5.1); Sodium 138 mEq/L (136-145); eGFR For African Americans > 60 (> 60); eGFR For Non-African Americans > 60 (> 60)
[2019-02-25] MEDS: *HR* LORazepam 1 MG TABLET PO SCH (20:56)
[2019-02-25] MEDS: Topiramate 100 MG TABLET PO SCH (20:57)
[2019-02-26 03:50] LABS: BUN/Creatinine Ratio 14 (6-26); Blood Urea Nitrogen 10 mg/dL (6-20); Carbon Dioxide 17 mEq/L (23-29); Chloride 115 mEq/L (98-107); Glucose 144 mg/dL (70-105); Magnesium 1.7 mg/dL (1.6-2.6); Osmolality,Calculated 294 (280-300); Phosphorous 2.4 mg/dL (2.7-4.5); Potassium 3.4 mEq/L (3.5-5.1); Sodium 141 mEq/L (136-145); eGFR For African Americans > 60 (> 60); eGFR For Non-African Americans > 60 (> 60)
[2019-02-26 03:52] LABS: Basophils % 0.1 %; Eosinophils % 0.1 %; Hemoglobin 10.3 g/dL (11.5-15.4); Lymphocytes # 2.1 K/mcL (0.6-4.6); Lymphocytes % 29.7 %; Mean Corpuscular HGB Conc 31.2 g/dL (31.6-35.5); Mean Corpuscular Hemoglobin 26.6 pg (28.0-33.3); Mean Corpuscular Volume 85.3 fL (83.0-100.0); Mean Platelet Volume 10.5 fL (9.4-12.4); Monocytes # 0.3 K/mcL (0.0-1.3); Monocytes % 4.5 %; Neutrophils # 4.5 K/mcL (1.6-8.9); Platelet Count 182 K/mcL (140-400); Red Blood Count 3.87 M/mcL (3.82-4.97); Red Cell Distribution Width 19.5 % (11.5-14.5); Segmented Neutrophils % 64.6 %; White Blood Count 6.9 K/mcL (4.3-11.1)
[2019-02-26] MEDS: *HR* Heparin 5,000 UNIT/ML VIAL SQ SCH ×3 (05:25→19:59)
[2019-02-26] MEDS: Insulin LISPRO 300 UNITS/3 ML VIAL SQ SCH ×4 (07:51→19:53)
--- NOTE | 2019-02-26 07:53 | Internal Med Progress Note ---
<Gary Peng I - Last Filed: 02/26/19 11:44> Hospitalist Progress Note - Encounter Date of Encounter: 02/26/19 Time of Encounter: 09:15 - Subjective Interval History: Patient is seen and examined today . she feels much better. She denies CP, SOB, nausea, or vomiting. Diarrhea is much better and slowing down , less pain on urination , no fever or chills , patient is stable , she has been transferred to - Exam Vitals: Temp Pulse Resp BP Pulse Ox 97.8 F 61 18 104/65 97 02/26/19 07:22 02/26/19 07:22 02/26/19 07:22 02/26/19 07:22 02/26/19 07:22 Exam: General: no acute distress , A&AX3 HEENT: Atraumatic, Normocephaly, sclera unicteric Neck: supple , Full ROM , trachea midline Cardiac: RRR , S1+. S2+ Lungs: Normal Breath Sounds Bilaterally, No Wheeze, Rales, Rhonchi Abdomen: Soft, Non-Tender ,no organomegaly , +bowel sounds Extremities: No Clubbing, No Cyanosis,or edema , Normal Pulses Skin : intact , Normal color Psychiatric : normal affect, normal mood Nuero : alert, normal gait, oriented X3 - Assessment and Plan (1) Sepsis Current Visit: Yes Status: Acute Assessment and Plan: resolved patient is clinically stable , vitals stable, wbc WNL Blood cultures negative. Urine culture + for E. Coli; treated with antibiotics (2) UTI (urinary tract infection) Current Visit: Yes Status: Acute Assessment and Plan: clinically stable no abdominal pain or burning on urination patient received 5 days of Rocephin for UTI. we Convert to oral antibiotics bactrim for total 7 days wbc wnl (3) Prolonged QT interval Current Visit: Yes Status: Acute Assessment and Plan: repeated EKG this morning showed QTC 420 will resumed home psych med repeat EKG tomorrow ECHO ordered. Monitor and correct electrolytes (4) Adrenal insufficiency Current Visit: Yes Status: Suspected Assessment and Plan: Baseline AM cortisol was low in the setting of sepsis; as such, hydrocortisone was added to other supportive measures (IVF and pressors) at that time to - maintain hemodynamic stability. She had significant improvement with steroids and GI symptoms improved drastically. Stool was negative for C. Diff. - hydrocortisone dose tapered to 20 mg BID instead of TID (5) Hypokalemia Current Visit: Yes Status: Acute Assessment and Plan: k 3.4. repleted , mg was repleted as well for a goal >2 continue monitoring (6) Hyponatremia Current Visit: Yes Status: Acute Assessment and Plan: resolved (7) Diabetes mellitus Current Visit: Yes Status: Chronic Assessment and Plan: blood sugar 144 diabetic diet detemir 10 unit BID medium SSI (8) Hypophosphatemia Current Visit: Yes Status: Acute Assessment and Plan: phos level is 2.r improved and repleted Monitor daily. - Time Spent with Patient Total time spent is greater than 50% in coordination of care (as documented) at patient's floor/unit and/or counseling patient: Internal Medicine: Result - Labs CBC & Chem 7: 02/26/19 03:10 02/26/19 03:10 Labs: Short CBC 02/26/19 Range/Units 03:10 WBC 6.9 (4.3-11.1) K/mcL Hgb 10.3 L (11.5-15.4) g/dL Hct 33.0 L (35.3-44.9) % Plt Count 182 (140-400) K/mcL Neutrophils # 4.5 (1.6-8.9) K/mcL BMP 02/25/19 02/26/19 15:54 03:10 Sodium 138 141 Potassium 3.5 3.4 L Chloride 113 H 115 H Carbon Dioxide 20 L 17 L BUN 11 10 Creatinine 0.71 0.71 Glucose 180 H 144 H Calcium 8.1 L 8.0 L - ABG Interpretation ABG results: ABG ABG pH 7.49 pH Units (7.32-7.45) H 02/21/19 16:27 ABG pCO2 32 mmHg (35-45) L 02/21/19 16:27 ABG pO2 91 mmHg (85-104) 02/21/19 16:27 ABG O2 Saturation 98 % (95-98) 02/21/19 16:27 Consult Discharge Plan - Plan Referrals: Joseph Matthews MD [Primary Care Provider] - 03/06/19 1:15 pm <Danitza Nunes - Last Filed: 02/26/19 14:12> Hospitalist Progress Note - Encounter Date of Encounter: 02/26/19 - Exam Vitals: Temp Pulse Resp BP Pulse Ox 97.6 F 70 17 104/69 97 02/26/19 12:14 02/26/19 12:14 02/26/19 12:14 02/26/19 12:14 02/26/19 07:22 - Time Spent with Patient Total time spent is greater than 50% in coordination of care (as documented) at patient's floor/unit and/or counseling patient: Internal Medicine: Result - Labs CBC & Chem 7: 02/26/19 03:10 02/26/19 03:10 Labs: Short CBC 02/26/19 Range/Units 03:10 WBC 6.9 (4.3-11.1) K/mcL Hgb 10.3 L (11.5-15.4) g/dL Hct 33.0 L (35.3-44.9) % Plt Count 182 (140-400) K/mcL Neutrophils # 4.5 (1.6-8.9) K/mcL BMP 02/25/19 02/26/19 15:54 03:10 Sodium 138 141 Potassium 3.5 3.4 L Chloride 113 H 115 H Carbon Dioxide 20 L 17 L BUN 11 10 Creatinine 0.71 0.71 Glucose 180 H 144 H Calcium 8.1 L 8.0 L - ABG Interpretation ABG results: ABG ABG pH 7.49 pH Units (7.32-7.45) H 02/21/19 16:27 ABG pCO2 32 mmHg (35-45) L 02/21/19 16:27 ABG pO2 91 mmHg (85-104) 02/21/19 16:27 ABG O2 Saturation 98 % (95-98) 02/21/19 16:27 - Impressions Impressions Echocardiogram 02/25/19 17:40 Impressions: LVEF 60%. Mild left ventricular diastolic dysfunction. Borderline left atrial size. Mild mitral regurgitation. Trace tricuspid regurgitation. The pericardium appears normal. Findings: Study Quality * Technically adequate exam. Left Ventricle * LVEF 60%. * Normal LV chamber size, wall thickness and function. * Mild left ventricular diastolic dysfunction. Right Ventricle * Normal right ventricular structure and function. Left Atrium * Borderline left atrial size. Right Atrium * Normal right atrial size. Aortic Valve * Trileaflet aortic valve. Focal thickening. No AI. Mitral Valve * Normal mitral valve structure. * Mild mitral regurgitation. Tricuspid Valve * Normal tricuspid valve structure. * Trace tricuspid regurgitation. * Estimated RVSP is 18 mmHg. * Estimated RA pressure is 5 mmHg. Pulmonic Valve * Normal pulmonic valve structure and function. Aorta * Normally sized aortic root. Pericardium * The pericardium appears normal. * Appearance is consistent with a {type} mitral valve replacement. Function appears {function{. - Attending Attestation I saw evaluated and examined this patient and reviewed objective data including labs and my medical decision-making was reviewed with the Resident Physician/Medical Student. I agree with the documented findings, disposition and treatment plan as described except to any changes set forth below. We independently had [id number] contact with the patient. No acute events. Patient has no complaints. She is still having slow speech today but is not confused, AAO x3, aware of situation. VS: reviewed, labs: reviewed; despite volume and electrolyte repletion, patient is showing a metabolic acidosis. This will need further workup. Continue repletionof phos today. Repeat EKG today. <Gary Peng I - Last Filed: 02/26/19 11:44> (1) Sepsis Qualifiers: Sepsis type: sepsis due to unspecified organism Sepsis acute organ dysfunction status: without acute organ dysfunction Qualified Code(s): A41.9 - Sepsis, unspecified organism (2) UTI (urinary tract infection) Qualifiers: Urinary tract infection type: acute cystitis Hematuria presence: with hematuria Qualified Code(s): N30.01 - Acute cystitis with hematuria (7) Diabetes mellitus Qualifiers: Diabetes mellitus type: type 2 Diabetes mellitus fci insulin use: with utility division project manager use Diabetes mellitus complication status: with hyperglycemia Qualified Code(s): E11.65 - Type 2 diabetes mellitus with hyperglycemia; Z79.4 - retirement (current) use of insulin
[2019-02-26] MEDS: FLUoxetine 20 MG CAPSULE PO SCH (09:13)
[2019-02-26] MEDS: Topiramate 100 MG TABLET PO SCH ×2 (09:13→19:52)
[2019-02-26] MEDS: Sulfamethoxazole/Trimeth DS 1 EACH TABLET PO SCH ×2 (09:13→19:52)
[2019-02-26] MEDS: Hydrocortisone 10 MG TABLET PO SCH ×2 (09:14→19:51)
[2019-02-26] MEDS: *HR* LORazepam 1 MG TABLET PO SCH ×2 (09:14→19:52)
[2019-02-26] MEDS: Insulin DETEMIR 100 UNIT/ML X5UNITS SQ SCH ×2 (09:18→19:52)
[2019-02-26] MEDS: ARIPiprazole 5 MG TABLET PO SCH (10:57)
[2019-02-26 15:16] LABS: BUN/Creatinine Ratio 13 (6-26); Blood Urea Nitrogen 9 mg/dL (6-20); Calcium 8.4 mg/dL (8.6-10.3); Carbon Dioxide 20 mEq/L (23-29); Chloride 112 mEq/L (98-107); Glucose 215 mg/dL (70-105); Magnesium 1.6 mg/dL (1.6-2.6); Osmolality,Calculated 295 (280-300); Phosphorous 2.5 mg/dL (2.7-4.5); Potassium 3.5 mEq/L (3.5-5.1); Sodium 140 mEq/L (136-145); eGFR For African Americans > 60 (> 60); eGFR For Non-African Americans > 60 (> 60)
--- NOTE | 2019-02-26 15:52 | Electrocardiograph Report ---
[address] [address] Test Date: 2019-02-26 Pat Name: Lashon Blue Department: 112 Room: 2A42 Gender: F Acute Dialysis Registered Nurse: : 1970 Requested By: Gary Peng Order Number: [id number] Reading MD: Kate Soto Measurements Intervals [place] Rate: 62 P: 14 MT: 147 QRS: -7 QRSD: 90 T: 30 QT: 414 QTc: 420 Interpretive Statements SINUS RHYTHM Low voltage throughout Electronically Signed On 02-26-2019 15:50:21 EDT by Kate Soto
[2019-02-27] MEDS: *HR* Heparin 5,000 UNIT/ML VIAL SQ SCH ×3 (05:06→20:34)
[2019-02-27 05:45] LABS: Basophils % 0.2 %; Eosinophils % 0.8 %; Hematocrit 30.3 % (35.3-44.9); Hemoglobin 9.3 g/dL (11.5-15.4); Immature Granulocytes % 1.2 % (0-4); Lymphocytes # 2.3 K/mcL (0.6-4.6); Lymphocytes % 46.3 %; Mean Corpuscular HGB Conc 30.7 g/dL (31.6-35.5); Mean Corpuscular Hemoglobin 26.5 pg (28.0-33.3); Mean Corpuscular Volume 86.3 fL (83.0-100.0); Mean Platelet Volume 10.1 fL (9.4-12.4); Monocytes # 0.3 K/mcL (0.0-1.3); Monocytes % 6.8 %; Neutrophils # 2.2 K/mcL (1.6-8.9); Nucleated Red Blood Cells 0.4 /100 WBC (0); Platelet Count 156 K/mcL (140-400); Red Blood Count 3.51 M/mcL (3.82-4.97); Red Cell Distribution Width 19.6 % (11.5-14.5); Segmented Neutrophils % 44.7 %
[2019-02-27 06:06] LABS: BUN/Creatinine Ratio 12 (6-26); Blood Urea Nitrogen 10 mg/dL (6-20); Calcium 8.1 mg/dL (8.6-10.3); Carbon Dioxide 21 mEq/L (23-29); Chloride 112 mEq/L (98-107); Glucose 145 mg/dL (70-105); Magnesium 1.6 mg/dL (1.6-2.6); Osmolality,Calculated 294 (280-300); Phosphorous 2.9 mg/dL (2.7-4.5); Potassium 3.7 mEq/L (3.5-5.1); Sodium 141 mEq/L (136-145); eGFR For African Americans > 60 (> 60); eGFR For Non-African Americans > 60 (> 60)
[2019-02-27] MEDS: Insulin LISPRO 300 UNITS/3 ML VIAL SQ SCH ×4 (09:07→20:41)
[2019-02-27] MEDS: Insulin DETEMIR 100 UNIT/ML X5UNITS SQ SCH ×2 (09:08→20:34)
[2019-02-27] MEDS: Hydrocortisone 10 MG TABLET PO SCH (09:08)
[2019-02-27] MEDS: Sulfamethoxazole/Trimeth DS 1 EACH TABLET PO SCH ×2 (09:08→20:33)
[2019-02-27] MEDS: FLUoxetine 20 MG CAPSULE PO SCH (09:08)
[2019-02-27] MEDS: *HR* LORazepam 1 MG TABLET PO SCH ×2 (09:08→20:34)
[2019-02-27] MEDS: ARIPiprazole 5 MG TABLET PO SCH (09:08)
[2019-02-27] MEDS: Topiramate 100 MG TABLET PO SCH ×2 (09:09→20:33)
--- NOTE | 2019-02-27 09:19 | Internal Med Progress Note ---
Hospitalist Progress Note - Encounter Date of Encounter: 02/27/19 - Exam Vitals: Temp Pulse Resp BP Pulse Ox 98.3 F 57 16 106/69 97 02/27/19 07:22 02/27/19 07:22 02/27/19 07:22 02/27/19 07:22 02/27/19 07:22 - Assessment and Plan (1) Sepsis Current Visit: Yes Status: Acute (2) UTI (urinary tract infection) Current Visit: Yes Status: Acute (3) Prolonged QT interval Current Visit: Yes Status: Acute (4) Adrenal insufficiency Current Visit: Yes Status: Suspected (5) Hypokalemia Current Visit: Yes Status: Acute (6) Hyponatremia Current Visit: Yes Status: Acute (7) Diabetes mellitus Current Visit: Yes Status: Chronic (8) Hypophosphatemia Current Visit: Yes Status: Acute - Time Spent with Patient Total time spent is greater than 50% in coordination of care (as documented) at patient's floor/unit and/or counseling patient: Internal Medicine: Result - Labs CBC & Chem 7: 02/27/19 05:20 02/27/19 05:20 Labs: Short CBC 02/27/19 Range/Units 05:20 WBC 5.0 (4.3-11.1) K/mcL Hgb 9.3 L (11.5-15.4) g/dL Hct 30.3 L (35.3-44.9) % Plt Count 156 (140-400) K/mcL Neutrophils # 2.2 (1.6-8.9) K/mcL BMP 02/26/19 02/27/19 14:45 05:20 Sodium 140 141 Potassium 3.5 3.7 Chloride 112 H 112 H Carbon Dioxide 20 L 21 L BUN 9 10 Creatinine 0.71 0.86 Glucose 215 H 145 H Calcium 8.4 L 8.1 L - ABG Interpretation ABG results: ABG ABG pH 7.49 pH Units (7.32-7.45) H 02/21/19 16:27 ABG pCO2 32 mmHg (35-45) L 02/21/19 16:27 ABG pO2 91 mmHg (85-104) 02/21/19 16:27 ABG O2 Saturation 98 % (95-98) 02/21/19 16:27 - Impressions Impressions Echocardiogram 02/25/19 17:40 Impressions: LVEF 60%. Mild left ventricular diastolic dysfunction. Borderline left atrial size. Mild mitral regurgitation. Trace tricuspid regurgitation. The pericardium appears normal. Findings: Study Quality * Technically adequate exam. Left Ventricle * LVEF 60%. * Normal LV chamber size, wall thickness and function. * Mild left ventricular diastolic dysfunction. Right Ventricle * Normal right ventricular structure and function. Left Atrium * Borderline left atrial size. Right Atrium * Normal right atrial size. Aortic Valve * Trileaflet aortic valve. Focal thickening. No AI. Mitral Valve * Normal mitral valve structure. * Mild mitral regurgitation. Tricuspid Valve * Normal tricuspid valve structure. * Trace tricuspid regurgitation. * Estimated RVSP is 18 mmHg. * Estimated RA pressure is 5 mmHg. Pulmonic Valve * Normal pulmonic valve structure and function. Aorta * Normally sized aortic root. Pericardium * The pericardium appears normal. * Appearance is consistent with a {type} mitral valve replacement. Function appears {function{. Consult Discharge Plan - Plan Referrals: Joseph Matthews MD [Primary Care Provider] - 03/06/19 1:15 pm (1) Sepsis Qualifiers: Sepsis type: sepsis due to unspecified organism Sepsis acute organ dysfunction status: without acute organ dysfunction Qualified Code(s): A41.9 - Sepsis, unspecified organism (2) UTI (urinary tract infection) Qualifiers: Urinary tract infection type: acute cystitis Hematuria presence: with hematuria Qualified Code(s): N30.01 - Acute cystitis with hematuria (7) Diabetes mellitus Qualifiers: Diabetes mellitus type: type 2 Diabetes mellitus alf insulin use: with ferry terminal supervisor use Diabetes mellitus complication status: with hyperglycemia Qualified Code(s): E11.65 - Type 2 diabetes mellitus with hyperglycemia; Z79.4 - halfway (current) use of insulin
[2019-02-27] MEDS ORDERED: Magnesium Oxide 400 MG TABLET PO ONE (10:46)
--- NOTE | 2019-02-27 15:13 | Discharge Summary ---
<Gary Peng I - Last Filed: 02/28/19 13:27> - NOTES TO OUTPATIENT PROVIDER Notes to Outpatient Provider: Ms. Blue Presented to the ER with weakness as worsened over the past few weeks . Patient met sepsis criteria due to UTI she has been treated with full 7 days course of antibiotics .Her Baseline AM cor tisol was low in the setting of sepsis; as such, hydrocortisone was added to other supportive measures (IVF and pressors) at that time to -maintain hemodynamic stability. She had significant improvement with steroids and GI symptoms improved drastically .ACTH stimulation test come back normal . we stopped her hydrocortisone . follow up with endocrinology and urology Date of Encounter: 02/28/19 Time of Encounter: 10:00 - Discharge Diagnosis (1) Sepsis Priority: Primary Status: Acute Qualifiers: Sepsis type: sepsis due to unspecified organism Sepsis acute organ dysfunction status: without acute organ dysfunction Qualified Code(s): A41.9 - Sepsis, unspecified organism (2) UTI (urinary tract infection) Priority: Secondary Status: Acute Qualifiers: Urinary tract infection type: acute cystitis Hematuria presence: with hematuria Qualified Code(s): N30.01 - Acute cystitis with hematuria (3) Prolonged QT interval Status: Acute (4) Adrenal insufficiency Priority: Secondary Status: Suspected (5) Hypokalemia Priority: Secondary Status: Acute (6) Hyponatremia Priority: Secondary Status: Acute (7) Diabetes mellitus Priority: Secondary Status: Chronic Qualifiers: Diabetes mellitus type: type 2 Diabetes mellitus rn long term care insulin use: with rn long term care use Diabetes mellitus complication status: with hyperglycemia Qualified Code(s): E11.65 - Type 2 diabetes mellitus with hyperglycemia; Z79.4 - director long term care (current) use of insulin (8) Hypophosphatemia Priority: Secondary Status: Acute Hospital course: Ms. Blue is a 48 year old female with PMH of diabetes type 2 non- insulin dependent, hyperlipidemia, anxiety, depression, mood disorder. Presented to the ER with weakness as worsened over the past few weeks. She states that she has not been able to keep food or water down for 2 weeks. Reports vomiting. She was found to have UTI and sepsis, hypokalemia K 2.3 and noted to have a prolonged QTc on admisson .GI symptoms and electrolytes did not start to improve until we added stress dose steroids. Baseline AM cortisol was low in the setting of sepsis; as such, hydrocortisone was added to other supportive measures (IVF and pressors) at that time to -maintain hemodynamic stability. She had significant improvement with steroids and GI symptoms improved drastically. Stool was negative for C. Diff. ACTH stim test come back normal .For QT prolongation Given she is on multiple psychiatric meds and concern for prolonged QTc, cardiology consulted for further recs and recommend to resume home Prozac, Abilify, Topamax, Ativan and follow up with EKG which showed normal QTc later . Patient was treated for sepsis and UTI with 5 days of IV recephin and 2 day oral bactrim , her Blood cultures were negative.Urine culture + for E. Coli . her electrolytes are normal now Patient is stable now , sepsis resolved Patient has no complaints at this time except for urinary inc ontinence . She is still having slow speech today but is not confused, AAO x3, aware of situation . Patient is recommended to follow up with outsole splicer and urologist upon discharge . - Time Spent with Patient Total time spent providing and/or coordinating discharge services: - Discharge Medications Prescriptions: Continued Aspirin Enteric Coated [Aspirin EC] 325 mg PO DAILY Cholecalciferol (Vitamin D3) [Vitamin D3] 10,000 unit PO MOTH Glimepiride [Amaryl] 4 mg PO DAILY LORazepam [Ativan] 1 mg PO QAM LORazepam [Ativan] 2 mg PO HS Metformin HCl 1,000 mg PO BID Omeprazole [PriLOSEC] 20 mg PO DAILY Pioglitazone HCl 30 mg PO DAILY Potassium Chloride [Klor-Con 10] 10 meq PO DAILY Simvastatin [Zocor] 40 mg PO HS Topiramate [Topamax] 200 mg PO QAM Topiramate [Topamax] 100 mg PO HS ARIPiprazole [Abilify] 5 mg PO DAILY FLUoxetine HCl [Fluoxetine HCl] 40 mg PO DAILY Liraglutide [Victoza 3-Curtis] 1.8 mg SQ DAILY Home Medications: Aspirin Enteric Coated [Aspirin EC] 325 mg PO DAILY 01/09/18 [History] Cholecalciferol (Vitamin D3) [Vitamin D3] 10,000 unit PO MOTH 01/09/18 [History] Glimepiride [Amaryl] 4 mg PO DAILY 01/09/18 [History] LORazepam [Ativan] 1 mg PO QAM 01/09/18 [History] LORazepam [Ativan] 2 mg PO HS 01/09/18 [History] Metformin HCl 1,000 mg PO BID 01/09/18 [History] Omeprazole [PriLOSEC] 20 mg PO DAILY 01/09/18 [History] Pioglitazone HCl 30 mg PO DAILY 01/09/18 [History] Potassium Chloride [Klor-Con 10] 10 meq PO DAILY 01/09/18 [History] Simvastatin [Zocor] 40 mg PO HS 01/09/18 [History] Topiramate [Topamax] 100 mg PO HS 01/09/18 [History] Topiramate [Topamax] 200 mg PO QAM 01/09/18 [History] ARIPiprazole [Abilify] 5 mg PO DAILY 02/21/19 [History] FLUoxetine HCl [Fluoxetine HCl] 40 mg PO DAILY 02/21/19 [History] Liraglutide [Victoza 3-Curtis] 1.8 mg SQ DAILY 02/21/19 [History] Allergies/Adverse Reactions: Allergy/AdvReac Type Severity Reaction Status Date / Time divalproex sodium AdvReac Headache Verified 02/21/19 13:28 [From Depakote] glyburide [From Micronase] AdvReac Vomiting Verified 02/21/19 13:28 Date of admission: 02/21/19 16:14 Primary care physician: Joseph Matthews MD Consults: 02/21/19 18:32 Consult to Critical Care [CONS] Routine Consulting Provider: Pulm Crit Care & Sleep [place] Reason for Consult: hypokalemia with EKG changes, sepsis Call Completed: No 02/22/19 08:50 Consult to Invasive Line Access Team [CONS] Routine Reason for Consult: Picc Line Insertion Line Type: PICC 02/24/19 08:18 Consult to Cardiology [CONS] Routine Comment: Consulting Provider: Cardiology Karrie Reason for Consult: Long QTc on EKG; on multiple psychiatric meds which could prolong QTc Call Completed: No 02/26/19 14:09 Consult to Occupational Therapy [CONS] Routine Comment: Evaluate, develop and implement POC Reason for Consult: Evaluate, develop and implement POC Does patient have active BEDREST order?: No Is patient medically & hemodynamically stable?: Yes Consult to Physical Therapy [CONS] Routine Comment: Evaluate, develop and implement POC Reason for Consult: Disposition planning. Therapy - weakness in bed. Does patient have active BEDREST order?: No Is patient medically & hemodynamically stable?: Yes 02/27/19 11:10 Consult to Topographical Drafter [CONS] Routine Reason for SW Consult: placement - Constitutional Vitals: Temp Pulse Resp BP Pulse Ox 98.0 F 66 16 101/68 96 02/27/19 11:03 02/27/19 11:03 02/27/19 11:03 02/27/19 11:03 02/27/19 11:03 General appearance: Present: A&O X 2, no acute distress, answers questions appropriately (Although slowly) Exam: General: no acute distress , A&AX3 HEENT: Atraumatic, Normocephaly, sclera unicteric Neck: supple , Full ROM , trachea midline Cardiac: RRR , S1+. S2+ Lungs: Normal Breath Sounds Bilaterally, No Wheeze, Rales, Rhonchi Abdomen: Soft, Non-Tender ,no organomegaly , +bowel sounds Extremities: No Clubbing, No Cyanosis,or edema , Normal Pulses Skin : intact , Normal color Psychiatric : normal affect, normal mood Nuero : alert, normal gait, oriented X3 - Patient Status Disposition: Home, Self-Care Condition: Good Functional capacity at discharge: independent ambulation Overall status at discharge: patient is back to baseline - Discharge Instructions Instructions: Urinary Tract Infection in Women (DC) Follow Up With: Joseph Matthews MD [Primary Care Provider] - 03/06/19 1:15 pm (Please follow up as schedule...) Tarun Crockett MD [Partnered Physician] - 03/06/19 9:45 am (Please follow up as schedule...) - Diet and Activity Activity: increase activity as tolerated Diet: diabetic diet <Vega Dunn - Last Filed: 02/28/19 15:16> Date of Encounter: 02/28/19 Time of Encounter: 10:15 Hospital course: Ms. Blue is a 48 year old female - Time Spent with Patient Total time spent providing and/or coordinating discharge services: Date of admission: 02/21/19 16:14 Primary care physician: Joseph Matthews MD Consults: 02/21/19 18:32 Consult to Critical Care [CONS] Routine Consulting Provider: Pulm Crit Care [facility] Sleep [facility] Reason for Consult: hypokalemia with EKG changes, sepsis Call Completed: No 02/22/19 08:50 Consult to Invasive Line Access Team [CONS] Routine Reason for Consult: Picc Line Insertion Line Type: PICC 02/24/19 08:18 Consult to Cardiology [CONS] Routine Comment: Consulting Provider: Cardiology Karrie Reason for Consult: Long QTc on EKG; on multiple psychiatric meds which could prolong QTc Call Completed: No 02/26/19 14:09 Consult to Occupational Therapy [CONS] Routine Comment: Evaluate, develop and implement POC Reason for Consult: Evaluate, develop and implement POC Does patient have active BEDREST order?: No Is patient medically & hemodynamically stable?: Yes Consult to Physical Therapy [CONS] Routine Comment: Evaluate, develop and implement POC Reason for Consult: Disposition planning. Therapy - weakness in bed. Does patient have active BEDREST order?: No Is patient medically & hemodynamically stable?: Yes 02/27/19 11:10 Consult to Topographical Drafter [CONS] Routine Reason for SW Consult: placement - Constitutional Vitals: Temp Pulse Resp BP Pulse Ox 98.3 F 113 16 102/69 95 02/28/19 11:59 02/28/19 11:59 02/28/19 11:59 02/28/19 11:59 02/28/19 11:59 - Attending Attestation I saw evaluated and examined this patient and reviewed objective data including labs and my medical decision-making was reviewed with the Resident Physician. I agree with the documented findings, disposition and discharge plan as described except to any changes set forth below. We independently had [id number] contact with the patient. Patient with history of type 2 diabetes mellitus, hyperlipidemia, anxiety depression and mood disorder was hospitalized initially to the ICU for diabetic ketoacidosis versus starvation ketosis after presenting to the ER with complaints of weakness diarrhea and nausea. She was treated with IV fluids.she was also septic possibly related to an acute urinary tract infection. She was treated with IV antibiotics. Her serum Cortisol level was low so she was placed on stress dose steroids. Her ketosis resolved and eventually she was transitioned out of ICU. She has since been recovering well. She did have a prolonged QT interval which was believed to be due to her multiple psychotropic medications. These were held and eventually her QTC returned to normal. Her medications were resumed once her QTC improved. She also had electrolyte abnormalities which have been corrected. Her urine cultures were positive for Escherichia coli and patient has completed treatment for this with antibiotics. We have ruled out adrenal insufficiency with the ACTH stim test and she does not require further steroids. She was evaluated by physical therapy and recommended placement to skilled rehabilitation. However patient wishes to go home and so home health will be arranged for her. She will follow up with her PCP for further management of her chronic medical conditions. Time spent on discharge: 10 min
--- NOTE | 2019-02-27 16:45 | Internal Med Progress Note ---
<Vega Dunn - Last Filed: 02/27/19 16:55> Hospitalist Progress Note - Encounter Date of Encounter: 02/27/19 Time of Encounter: 10:35 - Exam Vitals: Temp Pulse Resp BP Pulse Ox 98.3 F 74 17 105/71 96 02/27/19 16:01 02/27/19 16:01 02/27/19 16:01 02/27/19 16:01 02/27/19 16:01 - Time Spent with Patient Total time spent is greater than 50% in coordination of care (as documented) at patient's floor/unit and/or counseling patient: Internal Medicine: Result - Labs CBC & Chem 7: 02/27/19 05:20 02/27/19 05:20 Labs: Short CBC 02/27/19 Range/Units 05:20 WBC 5.0 (4.3-11.1) K/mcL Hgb 9.3 L (11.5-15.4) g/dL Hct 30.3 L (35.3-44.9) % Plt Count 156 (140-400) K/mcL Neutrophils # 2.2 (1.6-8.9) K/mcL BMP 02/27/19 05:20 Sodium 141 Potassium 3.7 Chloride 112 H Carbon Dioxide 21 L BUN 10 Creatinine 0.86 Glucose 145 H Calcium 8.1 L - ABG Interpretation ABG results: ABG ABG pH 7.49 pH Units (7.32-7.45) H 02/21/19 16:27 ABG pCO2 32 mmHg (35-45) L 02/21/19 16:27 ABG pO2 91 mmHg (85-104) 02/21/19 16:27 ABG O2 Saturation 98 % (95-98) 02/21/19 16:27 Consult Discharge Plan - Plan Referrals: Joseph Matthews MD [Primary Care Provider] - 03/06/19 1:15 pm - Attending Attestation I saw evaluated and examined this patient and reviewed objective data including labs and my medical decision-making was reviewed with the Resident Physician, Gary Peng. I agree with the documented findings, disposition and treatment plan as described except to any changes set forth below. We independently had dazb-oz-zbun contact with the patient. Patient is awake and alert. Doing well overall. She did complain of incontinence today. No dysuria. No fevers or chills reported. No chest pain or palpitations. She is awake and alert. Oriented 3 but slow speech. Discussed with [facility] endocrinology regarding patient's possible diagnosis of had renal insufficiency. They recommended doing cosyntropin stim test. Will stop hydrocortisone tonight. Plan for doing this test tomorrow morning. Blood sugars elevated today. Would adjust insulin regimen accordingly. Complete treatment for acute cystitis with Bactrim. <Gary Peng I - Last Filed: 02/27/19 17:30> Hospitalist Progress Note - Encounter Date of Encounter: 02/27/19 - Subjective Interval History: Patient is seen and examined today . she feels much better. She denies CP, SOB, nausea, or vomiting. Diarrhea is much better and slowing down , less pain on urination , no fever or chills , patient is stable - Exam Vitals: Temp Pulse Resp BP Pulse Ox 98.3 F 74 17 105/71 96 02/27/19 16:01 02/27/19 16:01 02/27/19 16:01 02/27/19 16:01 02/27/19 16:01 Exam: General: no acute distress , A&AX3 HEENT: Atraumatic, Normocephaly, sclera unicteric Neck: supple , Full ROM , trachea midline Cardiac: RRR , S1+. S2+ Lungs: Normal Breath Sounds Bilaterally, No Wheeze, Rales, Rhonchi Abdomen: Soft, Non-Tender ,no organomegaly , +bowel sounds Extremities: No Clubbing, No Cyanosis,or edema , Normal Pulses Skin : intact , Normal color Psychiatric : normal affect, normal mood Nuero : alert, normal gait, oriented X3 - Assessment and Plan (1) Sepsis Current Visit: Yes Status: Acute Assessment and Plan: resolved patient is clinically stable , vitals stable, wbc WNL Blood cultures negative. Urine culture + for E. Coli; treated with antibiotics (2) UTI (urinary tract infection) Current Visit: Yes Status: Acute Assessment and Plan: clinically stable no abdominal pain or burning on urination complains of some urinary incontinence patient received 5 days of Rocephin and 2 days of bactrim for UTI (3) Prolonged QT interval Current Visit: Yes Status: Acute Assessment and Plan: resolved (4) Adrenal insufficiency Current Visit: Yes Status: Suspected Assessment and Plan: Assessment and Plan: Baseline AM cortisol was low in the setting of sepsis; as such, hydrocortisone was added to other supportive measures (IVF and pressors) at that time to - maintain hemodynamic stability. She had significant improvement with steroids and GI symptoms improved drastically. Stool was negative for C. Diff. plan stop hydrocortisone now ACTH test tomorrow morning (5) Hypokalemia Current Visit: Yes Status: Acute Assessment and Plan: resolved (6) Hyponatremia Current Visit: Yes Status: Acute Assessment and Plan: resolved (7) Diabetes mellitus Current Visit: Yes Status: Chronic Assessment and Plan: blood sugar 188 diabetic diet detemir 10 unit BID medium SSI (8) Hypophosphatemia Current Visit: Yes Status: Acute - Time Spent with Patient Total time spent is greater than 50% in coordination of care (as documented) at patient's floor/unit and/or counseling patient: Internal Medicine: Result - Labs CBC & Chem 7: 02/27/19 05:20 02/27/19 05:20 Labs: Short CBC 02/27/19 Range/Units 05:20 WBC 5.0 (4.3-11.1) K/mcL Hgb 9.3 L (11.5-15.4) g/dL Hct 30.3 L (35.3-44.9) % Plt Count 156 (140-400) K/mcL Neutrophils # 2.2 (1.6-8.9) K/mcL BMP 02/27/19 05:20 Sodium 141 Potassium 3.7 Chloride 112 H Carbon Dioxide 21 L BUN 10 Creatinine 0.86 Glucose 145 H Calcium 8.1 L - ABG Interpretation ABG results: ABG ABG pH 7.49 pH Units (7.32-7.45) H 02/21/19 16:27 ABG pCO2 32 mmHg (35-45) L 02/21/19 16:27 ABG pO2 91 mmHg (85-104) 02/21/19 16:27 ABG O2 Saturation 98 % (95-98) 02/21/19 16:27 <GinetteGary I - Last Filed: 02/27/19 17:30> (1) Sepsis Qualifiers: Sepsis type: sepsis due to unspecified organism Sepsis acute organ dysfunction status: without acute organ dysfunction Qualified Code(s): A41.9 - Sepsis, unspecified organism (2) UTI (urinary tract infection) Qualifiers: Urinary tract infection type: acute cystitis Hematuria presence: with hematuria Qualified Code(s): N30.01 - Acute cystitis with hematuria (7) Diabetes mellitus Qualifiers: Diabetes mellitus type: type 2 Diabetes mellitus prison insulin use: with termite exterminator helper use Diabetes mellitus complication status: with hyperglycemia Qualified Code(s): E11.65 - Type 2 diabetes mellitus with hyperglycemia; Z79.4 - FDC (current) use of insulin
[2019-02-28 02:40] LABS: Basophils % 0.5 %; Eosinophils # 0.1 K/mcL (0.0-0.6); Eosinophils % 1.4 %; Hematocrit 31.1 % (35.3-44.9); Hemoglobin 9.7 g/dL (11.5-15.4); Immature Granulocytes % 1.2 % (0-4); Lymphocytes # 2.7 K/mcL (0.6-4.6); Lymphocytes % 47.7 %; Mean Corpuscular HGB Conc 31.2 g/dL (31.6-35.5); Mean Corpuscular Hemoglobin 26.4 pg (28.0-33.3); Mean Corpuscular Volume 84.5 fL (83.0-100.0); Mean Platelet Volume 10.5 fL (9.4-12.4); Monocytes # 0.4 K/mcL (0.0-1.3); Monocytes % 7.6 %; Neutrophils # 2.4 K/mcL (1.6-8.9); Nucleated Red Blood Cells 0.5 /100 WBC (0); Platelet Count 161 K/mcL (140-400); Red Blood Count 3.68 M/mcL (3.82-4.97); Red Cell Distribution Width 20.1 % (11.5-14.5); Segmented Neutrophils % 41.6 %; White Blood Count 5.7 K/mcL (4.3-11.1)
[2019-02-28 02:49] LABS: BUN/Creatinine Ratio 9 (6-26); Blood Urea Nitrogen 8 mg/dL (6-20); Carbon Dioxide 21 mEq/L (23-29); Chloride 113 mEq/L (98-107); Glucose 93 mg/dL (70-105); Osmolality,Calculated 292 (280-300); Potassium 3.3 mEq/L (3.5-5.1); Sodium 142 mEq/L (136-145); eGFR For African Americans > 60 (> 60); eGFR For Non-African Americans > 60 (> 60)
[2019-02-28] MEDS: *HR* Heparin 5,000 UNIT/ML VIAL SQ SCH ×2 (05:24→14:38)
[2019-02-28] MEDS ORDERED: Cosyntropin 250 MCG/2 ML VIAL IVP ONE (07:53)
[2019-02-28] MEDS: Insulin LISPRO 300 UNITS/3 ML VIAL SQ SCH ×2 (08:02→12:13)
[2019-02-28] MEDS: *HR* LORazepam 1 MG TABLET PO SCH (08:17)
[2019-02-28] MEDS: FLUoxetine 20 MG CAPSULE PO SCH (08:17)
[2019-02-28] MEDS: ARIPiprazole 5 MG TABLET PO SCH (08:17)
[2019-02-28] MEDS: Sulfamethoxazole/Trimeth DS 1 EACH TABLET PO SCH (08:18)
[2019-02-28] MEDS: Topiramate 100 MG TABLET PO SCH (08:18)
[2019-02-28] MEDS: Insulin DETEMIR 100 UNIT/ML X5UNITS SQ SCH (08:18)
[2019-02-28 12:07] VITALS: BP 102/69
--- NOTE | 2019-02-28 14:36 | Physician Discharge Referral ---
<Gary Peng I - Last Filed: 02/28/19 14:33> Home Health/Hosp Referral Info Transfer to: Home Health Provider in Charge Post Discharge: PCP - Diagnosis (1) Sepsis Priority: Primary Status: Acute (2) UTI (urinary tract infection) Priority: Secondary Status: Acute (3) Prolonged QT interval Priority: Secondary Status: Acute (4) Adrenal insufficiency Priority: Secondary Status: Suspected (5) Hypokalemia Priority: Secondary Status: Acute (6) Hyponatremia Priority: Secondary Status: Acute (7) Diabetes mellitus Priority: Secondary Status: Chronic (8) Hypophosphatemia Priority: Secondary Status: Acute - Respiratory Orders Smoking Cessation: Smoking cessation has been advised. For more information, call the [place] Tobacco Quit Line at 8-966-ATZF-NOW. - Diet/Nutrition Diet/Nutrition Orders: No Concentrated Sweets - Activity Activity Orders: Up ad juan luis - Services Needed Following services are medically necessary services: Home Health Aide, Physical Therapy - Transfer Medications Home Medications: RX: Aspirin Enteric Coated [Aspirin EC] 325 mg PO DAILY 01/09/18 [History] RX: Cholecalciferol (Vitamin D3) [Vitamin D3] 10,000 unit PO MOTH 01/09/18 [History] RX: Glimepiride [Amaryl] 4 mg PO DAILY 01/09/18 [History] RX: LORazepam [Ativan] 1 mg PO QAM 01/09/18 [History] RX: LORazepam [Ativan] 2 mg PO HS 01/09/18 [History] RX: Metformin HCl 1,000 mg PO BID 01/09/18 [History] RX: Omeprazole [PriLOSEC] 20 mg PO DAILY 01/09/18 [History] RX: Pioglitazone HCl 30 mg PO DAILY 01/09/18 [History] RX: Potassium Chloride [Klor-Con 10] 10 meq PO DAILY 01/09/18 [History] RX: Simvastatin [Zocor] 40 mg PO HS 01/09/18 [History] RX: Topiramate [Topamax] 100 mg PO HS 01/09/18 [History] RX: Topiramate [Topamax] 200 mg PO QAM 01/09/18 [History] RX: ARIPiprazole [Abilify] 5 mg PO DAILY 02/21/19 [History] RX: FLUoxetine HCl [Fluoxetine HCl] 40 mg PO DAILY 02/21/19 [History] RX: Liraglutide [Victoza 3-Curtis] 1.8 mg SQ DAILY 02/21/19 [History] Allergies/Adverse Reactions: Allergy/AdvReac Type Severity Reaction Status Date / Time divalproex sodium AdvReac Headache Verified 02/21/19 13:28 [From Depakote] glyburide [From Micronase] AdvReac Vomiting Verified 02/21/19 13:28 Certification: Further, I certify that my clinical findings support that this patient is homebound (i.e. absences from home require considerable and taxing effort and are for medical reasons or [facility] services or infrequently or short duration when for other reasons) because: Homebound Reason: Patient requires assistance of a person or device to safely leave home Attestation: My signature below is to certify that this patient is under my care and that I, or nurse practitioner, or a physician's merchandising assistant working with me, has a gouu-zf-tchu encounter with this patient. <Vega Dunn - Last Filed: 02/28/19 16:30> - Respiratory Orders Smoking Cessation: Smoking cessation has been advised. For more information, call the [place] Tobacco Quit Line at 2-788-WPZM-NOW. - Services Needed Following services are medically necessary services: Nursing, Physical Therapy, Occupational Therapy Certification: Further, I certify that my clinical findings support that this patient is homebound (i.e. absences from home require considerable and taxing effort and are for medical reasons or samaritan services or infrequently or short duration when for other reasons) because: Attestation: My signature below is to certify that this patient is under my care and that I, or nurse practitioner, or a physician's merchandising assistant working with me, has a dzkz-xm-qryl encounter with this patient.
--- NOTE | 2019-03-01 08:58 | Electrocardiograph Report ---
[address] [place], [place] [address] Test Date: 2019-02-27 Pat Name: Lashon Blue Department: 112 Room: 2A42 Gender: F Financial Counselor: : 1970 Requested By: Gary Peng Order Number: [id number] Reading MD: Alexis Soto Measurements Intervals Lynn Rate: 58 P: 24 MI: 133 QRS: -2 QRSD: 89 T: 1 QT: 438 QTc: 434 Interpretive Statements SINUS BRADYCARDIA WITH SINUS ARRHYTHMIA NONSPECIFIC T-WAVE ABNORMALITY Electronically Signed On 03-01-2019 8:57:04 EDT by Alexis Soto
== END 2019-02-28 15:20 | disposition home or self-care (01) | DRG 720 ==
LOC: EMEROOARM 13:25 → ICNU 16:14 → SUATTDRO 16:14 → ICNU 18:11 → 2NNU 02-24 13:13 → 2ANU 02-25 15:44
PROVIDERS: ADMIT Internal Medicine; ATTEND Internal Medicine

== ENCOUNTER 2020-03-30 10:27 | Inpatient (IN) ==
[2020-03-30] MEDS ORDERED: Ondansetron 4 MG/2 ML VIAL ONE ×2 (10:30→11:48)
[2020-03-30] MEDS ORDERED: *HR* Rocuronium Bromide 50 MG/5 ML VIAL ONE ×3 (10:30→13:59)
[2020-03-30] MEDS ORDERED: Dexamethasone 4 MG/ML VIAL ONE ×2 (10:30→11:48)
[2020-03-30] MEDS ORDERED: Lidocaine -MPF 4% 5 ML AMPUL ONE (10:30)
[2020-03-30] MEDS ORDERED: Lidocaine -MPF 2% 2 ML VIAL ONE ×3 (10:30→15:38)
[2020-03-30] MEDS ORDERED: *HR* FentaNYL (PF) 100 MCG/2 ML VIAL ONE ×3 (10:31→15:04)
[2020-03-30] MEDS ORDERED: *HR* Propofol 200 MG/20 ML VIAL IVP ONE ×2 (10:31→11:50)
[2020-03-30] MEDS ORDERED: *HR* Midazolam HCl 2 MG/2 ML VIAL ONE ×2 (10:31→11:48)
[2020-03-30] MEDS ORDERED: Acetaminophen IV 1,000 MG/100 ML INFUS..BTL IVPB ONE (10:43)
[2020-03-30] MEDS ORDERED: Pregabalin 75 MG CAPSULE PO ONE (10:43)
[2020-03-30] MEDS ORDERED: *HR* HYDROmorphone 2 MG TABLET PO PRN (10:43)
[2020-03-30] MEDS ORDERED: Famotidine 20 MG/2 ML VIAL IVP ONE (10:43)
[2020-03-30] MEDS ORDERED: *HR* Labetalol 20 MG/4 ML SYRINGE IVP PRN (10:43)
[2020-03-30] MEDS ORDERED: Scopolamine Patch 1.5 MG PATCH.TD72 TD ONE (10:43)
[2020-03-30] MEDS ORDERED: *HR* Promethazine 25 MG/ML VIAL IVP PRN (10:43)
[2020-03-30] MEDS ORDERED: *HR* HYDROmorphone PF 0.5 MG/0.5 ML SYRINGE IVP PRN (10:43)
[2020-03-30] MEDS ORDERED: *HR* OxyCODONE Immed Rel 5 MG TABLET PO PRN (10:43)
[2020-03-30] MEDS ORDERED: levoFLOXacin 500 MG/100 ML 500 MG/100 ML BAG IVPB ONE (10:54)
[2020-03-30] MEDS ORDERED: Ringers Solution, Lactated 1,000 ML IVC SCH (11:00)
[2020-03-30] MEDS ORDERED: Neostigmine Methylsulfate 3 MG/3 ML SYRINGE ONE (11:48)
[2020-03-30] MEDS ORDERED: *HR* Succinylcholine 200 MG/10 ML VIAL IVP ONE (11:48)
[2020-03-30] MEDS ORDERED: Lidocaine HCL 4 ML Topical Solution (Laryng-O-Jet Kit Sterile Pak) TP ONE (11:53)
[2020-03-30] MEDS ORDERED: *HR* PHENYLEPHRINE 1,000 MCG/10 ML SYRINGE IVP ONE (13:27)
[2020-03-30] MEDS ORDERED: *HR* HYDROMORPHONE 2 MG/ML VIAL ONE (15:20)
[2020-03-30] MEDS ORDERED: D5% in Water 1,000 ML IVC PRN (17:48)
[2020-03-30] MEDS ORDERED: Dextrose Gel 15 GM/37.5 ML TUBE PO PRN ×2 (17:48)
[2020-03-30] MEDS ORDERED: *HR* Dextrose 50 % in Water (Vial) 50 ML VIAL IVP PRN (17:48)
[2020-03-30] MEDS ORDERED: Ondansetron 4 MG/2 ML VIAL IVP PRN (17:48)
[2020-03-30] MEDS ORDERED: Naloxone 0.4 MG/ML INJ IVP PRN (17:48)
[2020-03-30] MEDS ORDERED: Acetaminophen 325 MG TABLET PO PRN (17:48)
[2020-03-30] MEDS: Insulin LISPRO 300 UNITS/3 ML VIAL SQ SCH (19:05)
[2020-03-30] MEDS: 0.9 % Sodium Chloride 1,000 ML IVC SCH (20:50)
[2020-03-30] MEDS: Topiramate 100 MG TABLET PO SCH (20:51)
[2020-03-31] MEDS: *HR* OxyCODONE/APAP 5/325 TABLET PO PRN ×2 (04:06→17:20)
[2020-03-31] MEDS: 0.9 % Sodium Chloride 1,000 ML IVC SCH (04:51)
[2020-03-31 05:51] LABS: Basophils % 0.3 %; Eosinophils % 0.1 %; Hematocrit 34.4 % (35.3-44.9); Hemoglobin 10.5 g/dL (11.5-15.4); INR 1.2; Immature Granulocytes % 0.4 % (0-4); Lymphocytes # 1.8 K/mcL (0.6-4.6); Mean Corpuscular HGB Conc 30.5 g/dL (31.6-35.5); Mean Corpuscular Hemoglobin 29.2 pg (28.0-33.3); Mean Corpuscular Volume 95.8 fL (83.0-100.0); Mean Platelet Volume 10.7 fL (9.4-12.4); Monocytes # 0.8 K/mcL (0.0-1.3); Monocytes % 8.2 %; Neutrophils # 7.1 K/mcL (1.6-8.9); Platelet Count 142 K/mcL (140-400); Prothrombin Time 13.6 Seconds (9.4-12.1); Red Blood Count 3.59 M/mcL (3.82-4.97); Red Cell Distribution Width 15.9 % (11.5-14.5); White Blood Count 9.7 K/mcL (4.3-11.1)
[2020-03-31] MEDS: levoFLOXacin 500 MG/100 ML 500 MG/100 ML BAG IVPB SCH (08:10)
[2020-03-31] MEDS: ARIPiprazole 5 MG TABLET PO SCH (08:10)
[2020-03-31] MEDS: FLUoxetine 20 MG CAPSULE PO SCH (08:10)
[2020-03-31] MEDS: Topiramate 100 MG TABLET PO SCH ×2 (08:11→21:16)
[2020-03-31] MEDS: Insulin LISPRO 300 UNITS/3 ML VIAL SQ SCH ×3 (08:54→17:21)
[2020-03-31] MEDS: *HR* Heparin 5,000 UNIT/ML VIAL SQ SCH ×2 (12:30→21:16)
[2020-04-01 07:57] LABS: Red Cell Distribution Width 15.8 % (11.5-14.5)
[2020-04-01 07:59] LABS: Hematocrit 33.9 % (35.3-44.9); Hemoglobin 10.5 g/dL (11.5-15.4); Immature Platelets 1.9 % (1.1-6.1); Mean Corpuscular Hemoglobin 28.7 pg (28.0-33.3); Mean Corpuscular Volume 92.6 fL (83.0-100.0); Mean Platelet Volume 10.6 fL (9.4-12.4); Red Blood Count 3.66 M/mcL (3.82-4.97); White Blood Count 8.6 K/mcL (4.3-11.1)
[2020-04-01] MEDS: FLUoxetine 20 MG CAPSULE PO SCH (08:01)
[2020-04-01] MEDS: ARIPiprazole 5 MG TABLET PO SCH (08:02)
[2020-04-01] MEDS: levoFLOXacin 500 MG/100 ML 500 MG/100 ML BAG IVPB SCH (08:02)
[2020-04-01] MEDS: Topiramate 100 MG TABLET PO SCH (08:02)
[2020-04-01] MEDS: Insulin LISPRO 300 UNITS/3 ML VIAL SQ SCH ×2 (08:03→12:15)
[2020-04-01 08:16] LABS: Calcium 8.8 mg/dL (8.6-10.3); Potassium 3.5 mEq/L (3.5-5.1)
[2020-04-01 10:44] VITALS: BP 130/65
[2020-04-01] MEDS: *HR* Heparin 5,000 UNIT/ML VIAL SQ SCH (12:15)
== END 2020-04-01 13:10 | disposition home or self-care (01) | DRG 443 ==
LOC: SAMDAY 10:27 → 3ANU 17:46
PROVIDERS: ADMIT Urology; ATTEND Urology